=== PATIENT | female | born 2005 | race Caucasian/White ===

== ENCOUNTER 2024-10-08 00:36 | Observation (INO) ==
--- NOTE | 2024-10-08 01:02 | Emergency Department Note ---
Impression & Plan Dizziness, Acute hypokalemia, Sinus tachycardia ED Provider Note HISTORY OF PRESENT ILLNESS: Patient is a 18-year-old female presenting with dizziness and tachycardia. Patient reports she was studying for a biochemistry test for tomorrow when she stood up and suddenly felt very dizzy and lightheaded like she was going to pass out and felt like her heart rate was very high. She states that she tested positive for mono 3 weeks ago. She has not had a fever for the last week. She states that she has had dysuria. Denies any vaginal bleeding or discharge. Denies any lower abdominal pain. Denies any chest pain or significant shortness of breath. She denies any DVT or PE history. She is not on any OCPs. ROS: as above PHYSICAL EXAM: Constitutional: Patient appears in no acute distress. HENT: Head: Normocephalic and atraumatic. Eyes: EOMI, PERRL Mouth/Throat: Mucous membranes moist. Neck: Trachea midline. Neck supple. Cardiovascular: Tachycardic with regular rhythm. No murmurs, rubs or gallops. Intact distal pulses. Pulmonary/Chest: No respiratory distress. Breath sounds clear and equal bilaterally. No wheezes or rales. Abdominal: Abdomen soft, no tenderness, rebound or guarding. Musculoskeletal: No edema, tenderness or deformity noted. Skin: Warm and dry. No rash, erythema, pallor or cyanosis Psychiatric: Appropriate mood and affect for situation. Neurological: Alert and keenly responsive. CN II-XII grossly intact, moving all extremities equally and fully. MDM: - Vitals signs showed hypertension and tachycardia - History obtained via patient. History as above. - Chronic conditions affecting care: None - Differential diagnoses include, but are not limited to: PE; dysrhythmia; electrolyte abnormality; UTI; pneumonia; ACS - Order placed for continuous cardiac monitoring. At this time, monitor showed rate of 108 bpm with normal sinus rhythm, per my interpretation. - External medical records reviewed. - EKG image interpreted by myself showed normal sinus rhythm. Rate tachycardic 112 bpm. QT 304. No acute ischemic changes. - Laboratory workup interpreted by myself showed normal WBC; normal PT/INR; normal D-dimer; slight hypokalemia (K 3.4); elevated glucose (135) with normal anion gap; normal troponin; normal lipase; negative hCG - UA negative for infection - Viral respiratory panel negative - CXR image reviewed by myself is negative for pneumonia, per my interpretation. - Patient given 1L NS in ER. - CT PE negative for PE - CT abdomen with IV contrast negative for acute abnormality. Spleen appeared unremarkable. - Patient remained persistently tachycardic in the emergency department. Unclear etiology for her tachycardia. - Patient had orthostatic vital signs performed and with standing she became tachycardic up to the 140s. Patient became very lightheaded and dizzy with this. She was sat back and laid back in bed and on my assessment she reports she feels worse than when she came in. Unclear etiology for her profound tachycardia. TSH added to workup. However, given patient's persistent tachycardia and persistent symptoms, will admit to hospitalist service. - Discussion was had with case assembler about patient's case and need for admission - Hospitalist, Dr. Colbert, consulted for admission - Patient admitted to [facility] hospitalist service for further evaluation and management. ASSESSMENT AND PLAN: Diagnosis: dizziness; acute hypokalemia; sinus tachycardia Plan: admit Past Med/Surg History Problem List (Updated 10/08/24 @ 04:36 by Ramona Escalante MD) Sinus tachycardia (Acute) Acute hypokalemia (Acute) Dizziness (Acute) Social History Smoking Status: Never smoker Preferred Language: Serbian Feels Safe at Home: Yes Results & Data (ED) Vital Signs Vital Signs - 24 hr 10/08/24 00:39 10/08/24 00:47 10/08/24 02:31 Temperature 36.8 C Temperature Source Temporal Artery Scan Pulse Rate - Lying Pulse Rate - Sitting Pulse Rate - Standing Pulse Rate 110 H 112 H 117 H Pulse Rate [Apical] Pulse Rate [Exercises] Pulse Rhythm Regular Pulse Rhythm [Apical] Pulse Strength [Apical] Respiratory Rate 20 17 Respiratory Rate [Exercises] Respiratory Effort / Characteristics Non-Labored Spontaneous Respiratory Depth Normal Respiratory Pattern Blood Pressure - Lying Blood Pressure - Sitting Blood Pressure- Standing Blood Pressure 153/95 H Blood Pressure [Left Arm] Blood Pressure Mean 114 Blood Pressure Mean [Left Arm] Blood Pressure Position [Left Arm] Pulse Oximetry 97 97 Pulse Oximetry [Exercises] Oxygen Delivery Method Room Air Room Air Sepsis Recent Fever Within 48 Hours No Sepsis New/Unexplained Change in Mental Status No Sepsis Action Taken by Nursing No Action Required 10/08/24 02:37 10/08/24 03:27 10/08/24 04:00 Temperature Temperature Source Pulse Rate - Lying Pulse Rate - Sitting Pulse Rate - Standing Pulse Rate Pulse Rate [Apical] 87 112 H Pulse Rate [Exercises] Pulse Rhythm Pulse Rhythm [Apical] Regular Regular Pulse Strength [Apical] Normal Normal Respiratory Rate 17 17 Respiratory Rate [Exercises] Respiratory Effort / Characteristics Non-Labored Non-Labored Respiratory Depth Normal Normal Respiratory Pattern Regular Regular Blood Pressure - Lying Blood Pressure - Sitting Blood Pressure- Standing Blood Pressure Blood Pressure [Left Arm] 135/78 109/76 Blood Pressure Mean Blood Pressure Mean [Left Arm] 97 87 Blood Pressure Position [Left Arm] Sitting Lying Pulse Oximetry 98 98 98 Pulse Oximetry [Exercises] Oxygen Delivery Method Room Air Room Air Room Air Sepsis Recent Fever Within 48 Hours Sepsis New/Unexplained Change in Mental Status Sepsis Action Taken by Nursing 10/08/24 04:45 10/08/24 04:47 Temperature Temperature Source Pulse Rate - Lying 98 H Pulse Rate - Sitting 115 H Pulse Rate - Standing 138 H Pulse Rate Pulse Rate [Apical] Pulse Rate [Exercises] 120 H Pulse Rhythm Pulse Rhythm [Apical] Pulse Strength [Apical] Respiratory Rate Respiratory Rate [Exercises] 18 Respiratory Effort / Characteristics Respiratory Depth Respiratory Pattern Blood Pressure - Lying 124/85 Blood Pressure - Sitting 130/78 Blood Pressure- Standing 112/86 Blood Pressure Blood Pressure [Left Arm] Blood Pressure Mean Blood Pressure Mean [Left Arm] Blood Pressure Position [Left Arm] Pulse Oximetry Pulse Oximetry [Exercises] 99 Oxygen Delivery Method Room Air Sepsis Recent Fever Within 48 Hours Sepsis New/Unexplained Change in Mental Status Sepsis Action Taken by Nursing Laboratory Data 10/08/24 00:47 10/08/24 00:47 Lab Results 10/08/24 10/08/24 10/08/24 Range/Units 00:47 01:12 01:43 WBC 6.93 (4.8-10.8) K/ul RBC 4.53 (4.20-5.40) M/uL Hgb 13.9 (12.0-16.0) g/dl Hct 39.3 (37.0-47.0) % MCV 86.8 (80.0-100.0) fL MCH 30.7 (25.0-34.0) pg MCHC 35.4 (32.0-36.0) g/dL RDW Std Deviation 38.2 (36.4-46.3) fL RDW Coeff of Juan 12.1 (11.5-14.5) % Plt Count 174 (130-400) K/uL MPV 9.8 (9.4-12.4) fL Immature Gran % (Auto) 0.1 % Neut % (Auto) 58.4 % Lymph % (Auto) 32.5 % Orange % (Auto) 7.5 % Eos % (Auto) 1.2 % Baso % (Auto) 0.3 % Neut # (Auto) 4.05 (1.40-6.50) K/uL Lymph # (Auto) 2.25 (1.20-3.40) K/uL Orange # (Auto) 0.52 (0.11-0.59) K/uL Eos # (Auto) 0.08 (0.00-0.50) K/uL Baso # (Auto) 0.02 (0.00-0.20) K/uL Immature Gran # (Auto) 0.01 (0.01-0.20) K/uL PT Cancelled 10.8 INR Cancelled 1.0 D-Dimer Cancelled 460 Sodium 140 (136-145) mmol/L Potassium 3.4 L (3.5-5.1) mmol/L Chloride 108 H (98-107) mmol/L Carbon Dioxide 26 (21-32) mmol/L Anion Gap 6 (3-11) BUN 23 (6-23) mg/dl Creatinine 0.89 (0.6-1.2) mg/dl Est Cr Clr Drug Dosing 94.4 ml/min eGFR 95.13 BUN/Creatinine Ratio 25.8 H (10-20) Glucose 135 H (70-99(Fasting)) mg/dl Calcium 9.5 (8.6-10.3) mg/dl Magnesium 1.7 (1.7-2.4) mg/dl Total Bilirubin 0.4 (0.2-1.0) mg/dl AST 18 (13-39) U/L ALT 14 (7-52) U/L Alkaline Phosphatase 81 (34-104) U/L Troponin I High Sens < 2.3 (0-14) pg/ml Total Protein 7.6 (6.0-8.3) gm/dl Albumin 4.6 (3.4-5.0) gm/dl Globulin 3.0 (2.5-4.0) gm/dl Albumin/Globulin Ratio 1.5 (0.9-2) Lipase 22 (11-82) U/L HCG, Qual Negative (Negative) Urine Color Yellow Urine Appearance Cloudy A (Clear) Urine pH 6.5 (4.5-7.5) Ur Specific [place] 1.004 (1.000-1.030) Urine Protein Negative (Negative) Urine Glucose (UA) Negative (Negative) Urine Ketones Negative (Negative) Urine Blood Negative (Negative) Urine Nitrite Negative (Negative) Urine Bilirubin Negative (Negative) Urine Urobilinogen Negative (Negative) Ur Leukocyte Esterase Negative (Negative) Urine WBC (Auto) 0-5 (0-5) /hpf Urine RBC (Auto) 0-2 (0-2) /hpf U Hyaline Cast (Auto) 0-2 (0-2) /lpf U Epithel Cells (Auto) 0-2 (0-2) /hpf Urine Bacteria (Auto) None Seen (None Seen) Adenovirus (PCR) Not Detected (NotDetected) B. pertussis DNA (PCR) Not Detected (NotDetected) B.parapertussis DNA PCR Not Detected (NotDetected) C. pneumoniae DNA (PCR) Not Detected (NotDetected) Coronavirus OC43 (PCR) Not Detected (NotDetected) Coronavirus HKU1 (PCR) Not Detected (NotDetected) Coronavirus 229E (PCR) Not Detected (NotDetected) SARS-CoV-2 (PCR) Not Detected (NotDetected) Coronavirus NL63 (PCR) Not Detected (NotDetected) Human Metapneumovir PCR Not Detected (NotDetected) Influenza Type A (PCR) Not Detected (NotDetected) Influenza Type B (PCR) Not Detected (NotDetected) M. pneumoniae (PCR) Not Detected (NotDetected) Parainfluenza 1 (PCR) Not Detected (NotDetected) Parainfluenza 2 (PCR) Not Detected (NotDetected) Parainfluenza 3 (PCR) Not Detected (NotDetected) Parainfluenza 4 (PCR) Not Detected (NotDetected) RSV (PCR) Not Detected (NotDetected) Entero/Rhino (PCR) Not Detected (NotDetected) Administered Medications Discontinued Medications Sodium Chloride (Nss) 1,000 mls @ 999 mls/hr IV .[id number] ONE Stop: 10/08/24 03:38 Last Infusion: 10/08/24 04:28 Dose: Infused Documented By: Admin: 10/08/24 03:07 Dose: 999 mls/hr Documented By: DUGLAS Ioversol (Optiray 320 125ml) 125 ml IV ONCE ONE Stop: 10/08/24 03:04 Last Admin: 10/08/24 03:03 Dose: 118 ml Documented By: MELISA Imaging Data Radiologist's Impression: Chest X-Ray 10/08/24 00:47 EXAM: XR chest 1V portable CLINICAL HISTORY: Chest pain, nonspecific TECHNIQUE: An X-ray image of the chest is obtained in AP projection. COMPARISON: No prior studies are available for comparison. FINDINGS: Pulmonary Parenchyma: Lungs are clear bilaterally. No evidence of consolidation, collapse, or focal opacities. No pulmonary nodules are identified. No evidence of pleural effusion or pleural thickening. Heart and Mediastinum: Heart size and shape are normal. No mediastinal widening or masses. No hilar or mediastinal lymphadenopathy. Bony Thorax: Bony thorax appears intact without fractures or deformities. Soft Tissues: Soft tissues overlying the chest wall are unremarkable. IMPRESSION: No acute cardiopulmonary abnormalities are identified. Electronically signed by Deepak Hardy 10-08-2024 02:54 AM Chest CTA 10/08/24 02:38 EXAM: CT angio chest PE protocol CLINICAL HISTORY: PE TECHNIQUE: Contiguous axial images were obtained from the neck base through the upper abdomen following intravenous administration of iodinated contrast material. Angiographic images were processed, 3D MIP images were acquired for interpretation. If IV contrast material had not been administered, the likelihood of detecting abnormalities relevant to the patient's condition would have been substantially decreased. Coronal and sagittal 3-D MIPs were likewise performed and indicated to increase the sensitivity of detectin diffuse clinically relevant pathology. CT scan was performed according to ALARA (as low as reasonable achievable). COMPARISON: None. FINDINGS: Adequate contrast bolus without evidence of pulmonary embolism. The central airways are patent. The lungs are clear. No pleural effusion. The heart, aorta, and pulmonary arteries are of normal size and configuration. There are no appreciable coronary artery and aortic atherosclerotic calcifications. No pericardial effusion is identified. The thyroid is unremarkable. No mediastinal, hilar, or axillary lymphadenopathy is noted. No suspicious lytic or sclerotic osseous lesions are identified. IMPRESSION: 1. No evidence of pulmonary embolism or pulmonary disease. Electronically signed by Eugene Pringle 10-08-2024 04:[address] 10/08/24 02:55 EXAM: CT abdomen w IV con CLINICAL HISTORY: recent mono; assess spleen TECHNIQUE: Contiguous axial images were of upper abdomen with intravenous contrast. Coronal and sagittal reconstructions were likewise performed and indicated to increase the sensitivity for detecting clinically relevant pathology. If IV contrast material had not been administered, the likelihood of detecting abnormalities relevant to the patient's condition would have been substantially decreased. CT scan was performed according to ALARA (as low as reasonable achievable). COMPARISON: None. FINDINGS: The visualized lung bases are clear. The liver is normal in size and attenuation. No focal liver lesions are seen. There is no intra or extrahepatic biliary ductal dilatation. Hepatic vasculature is patent. The gallbladder is present. The spleen, pancreas, and adrenal glands are unremarkable. The kidneys are normal in size and attenuation. There is no hydronephrosis or perinephric fat stranding. No renal calculi or renal masses are identified. The ureters are normal in caliber and no ureteral calculi are seen. The bladder is normal in contour. Pelvic viscera are unremarkable. Visualized bowel loops appears unremarkable. No adenopathy or fluid collections are seen. No aggressive appearing osseous lesions are identified. IMPRESSION: 1. No significant abnormality detected 2. Spleen appears unremarkable. Electronically signed by Eugene Pringle 10-08-2024 04:25 AM Discharge Plan Visit Data Chief Complaint: Cardiac Assessment Stated Complaint: DIZZINESS, CHEST PAIN, HIGH HEART RATE ED Provider: Ramona Escalante Discharge Problem: Dizziness, Acute hypokalemia, Sinus tachycardia Discharge Instructions Krames/Other Patient Handouts: ED Dizziness, Uncertain Cause Activity Restrictions/Additional Instructions: Your laboratory workup in the emergency department showed that your potassium level was slightly low. Your viral respiratory panel was negative. Your urinalysis did not show any evidence of infection. Your chest x-ray did not show any evidence of pneumonia. You also had a CT scan of your chest and abdomen which was negative for any blood clot to your lung, pneumonia or any abnormality to your spleen. Your heart rate is noted to be slightly elevated, but it is recommended that you stay well-hydrated the next few days. Please follow-up closely with [facility] and with your primary care provider. He should return to the emergency department if you develop any further episodes of chest pain or shortness of breath, lightheadedness or dizziness, or any new or worsening symptoms. Forms Stand Alone Forms: Work/School Release (ED), [facility] Referrals Referrals: PCP,NO [Physician] -
[2024-10-08 01:25] LABS: Appearance Urine Cloudy (Clear); Bacteria Urine Automated None Seen (None Seen); Bilirubin Urine Negative (Negative); Blood Urine Negative (Negative); Cast Urine Automated 0-2 /lpf (0-2); Color Urine Yellow; Epithelial Cell Urine Auto 0-2 /hpf (0-2); Glucose Urine UA Negative (Negative); Ketones Urine Negative (Negative); Leukocyte Esterase Urine Negative (Negative); Nitrite Urine Negative (Negative); Protein Urine Negative (Negative); RBC Urine Automated 0-2 /hpf (0-2); Specific Gravity Urine 1.004 (1.000-1.030); Urobilinogen Urine Negative (Negative); WBC Urine Automated 0-5 /hpf (0-5); pH Urine 6.5 (4.5-7.5)
[2024-10-08 01:26] LABS: Basophils # (auto) 0.02 K/uL (0.00-0.20); Basophils % (auto) 0.3 %; Eosinophils # (auto) 0.08 K/uL (0.00-0.50); Eosinophils % (auto) 1.2 %; Hematocrit (blood only) 39.3 % (37.0-47.0); Hemoglobin 13.9 g/dl (12.0-16.0); Immature Granulocytes # (auto) 0.01 K/uL (0.01-0.20); Immature Granulocytes % (auto) 0.1 %; Lymphocytes # (auto) 2.25 K/uL (1.20-3.40); Lymphocytes % (auto) 32.5 %; Mean Corpuscular Hemoglobin 30.7 pg (25.0-34.0); Mean Corpuscular Hgb Conc 35.4 g/dL (32.0-36.0); Mean Corpuscular Volume 86.8 fL (80.0-100.0); Mean Platelet Volume 9.8 fL (9.4-12.4); Monocytes # (auto) 0.52 K/uL (0.11-0.59); Monocytes % (auto) 7.5 %; Neutrophils # (auto) 4.05 K/uL (1.40-6.50); Neutrophils % (auto) 58.4 %; Platelet Count 174 K/uL (130-400); RDW Coefficient of Variation 12.1 % (11.5-14.5); RDW Standard Deviation 38.2 fL (36.4-46.3); Red Blood Count 4.53 M/uL (4.20-5.40); White Blood Count 6.93 K/ul (4.8-10.8)
[2024-10-08 01:38] LABS: Pregnancy Test, Serum Negative (Negative)
[2024-10-08 01:42] LABS: Alanine Aminotransferase 14 U/L (7-52); Albumin Globulin Ratio 1.5 (0.9-2); Albumin Level 4.6 gm/dl (3.4-5.0); Alkaline Phosphatase 81 U/L (34-104); Anion Gap 6 (3-11); Aspartate Aminotransferase 18 U/L (13-39); BUN Creatinine Ratio 25.8 (10-20); Bilirubin,Total 0.4 mg/dl (0.2-1.0); Blood Urea Nitrogen 23 mg/dl (6-23); Calcium 9.5 mg/dl (8.6-10.3); Carbon Dioxide 26 mmol/L (21-32); Chloride 108 mmol/L (98-107); Creatinine Clr Calc Pharmacy 94.4 ml/min; Glucose 135 mg/dl (70-99(Fasting)); Lipase 22 U/L (11-82); Potassium 3.4 mmol/L (3.5-5.1); Sodium 140 mmol/L (136-145); Total Protein 7.6 gm/dl (6.0-8.3)
[2024-10-08 01:48] LABS: Troponin I High Sensitivity < 2.3 pg/ml (0-14)
[2024-10-08 02:12] LABS: Adenovirus PCR Not Detected (NotDetected); Bordetella parapertussis PCR Not Detected (NotDetected); Bordetella pertussis PCR Not Detected (NotDetected); Chlamydia pneumoniae PCR Not Detected (NotDetected); Coronavirus 229E PCR Not Detected (NotDetected); Coronavirus CoV-2 (COVID19)PCR Not Detected (NotDetected); Coronavirus HKU1 PCR Not Detected (NotDetected); Coronavirus NL63 PCR Not Detected (NotDetected); Coronavirus OC43PCR Not Detected (NotDetected); Human Metapneumovirus PCR Not Detected (NotDetected); Influenza A PCR Not Detected (NotDetected); Influenza B PCR Not Detected (NotDetected); Mycoplasma pneumoniae PCR Not Detected (NotDetected); Parainfluenza Virus 1 PCR Not Detected (NotDetected); Parainfluenza Virus 2 PCR Not Detected (NotDetected); Parainfluenza Virus 3 PCR Not Detected (NotDetected); Parainfluenza Virus 4 PCR Not Detected (NotDetected); Respiratory Syncytial VirusPCR Not Detected (NotDetected); Rhinovirus/Enterovirus PCR Not Detected (NotDetected)
[2024-10-08 02:33] LABS: D Dimer 460 ug/L FEU (0-500); Prothrombin Time 10.8 Seconds (9.0-12.0)
--- NOTE | 2024-10-08 02:57 | XRay Report ---
EXAM: XR chest 1V portable CLINICAL HISTORY: Chest pain, nonspecific TECHNIQUE: An X-ray image of the chest is obtained in AP projection. COMPARISON: No prior studies are available for comparison. FINDINGS: Pulmonary Parenchyma: Lungs are clear bilaterally. No evidence of consolidation, collapse, or focal opacities. No pulmonary nodules are identified. No evidence of pleural effusion or pleural thickening. Heart and Mediastinum: Heart size and shape are normal. No mediastinal widening or masses. No hilar or mediastinal lymphadenopathy. Bony Thorax: Bony thorax appears intact without fractures or deformities. Soft Tissues: Soft tissues overlying the chest wall are unremarkable. IMPRESSION: No acute cardiopulmonary abnormalities are identified. Electronically signed by Deepak Hardy 10-08-2024 02:54 AM
[2024-10-08] MEDS: OPTIRAY 320 125ml IV ONE (03:03)
[2024-10-08] MEDS: SODIUM CHLORIDE 0.9% 1,000 ML IV ONE ×2 (03:07→13:03)
[2024-10-08 03:10] LABS: Magnesium 1.7 mg/dl (1.7-2.4)
--- NOTE | 2024-10-08 04:24 | CT Scan Report ---
EXAM: CT angio chest PE protocol CLINICAL HISTORY: PE TECHNIQUE: Contiguous axial images were obtained from the neck base through the upper abdomen following intravenous administration of iodinated contrast material. Angiographic images were processed, 3D MIP images were acquired for interpretation. If IV contrast material had not been administered, the likelihood of detecting abnormalities relevant to the patient's condition would have been substantially decreased. Coronal and sagittal 3-D MIPs were likewise performed and indicated to increase the sensitivity of detectin diffuse clinically relevant pathology. CT scan was performed according to ALARA (as low as reasonable achievable). COMPARISON: None. FINDINGS: Adequate contrast bolus without evidence of pulmonary embolism. The central airways are patent. The lungs are clear. No pleural effusion. The heart, aorta, and pulmonary arteries are of normal size and configuration. There are no appreciable coronary artery and aortic atherosclerotic calcifications. No pericardial effusion is identified. The thyroid is unremarkable. No mediastinal, hilar, or axillary lymphadenopathy is noted. No suspicious lytic or sclerotic osseous lesions are identified. IMPRESSION: 1. No evidence of pulmonary embolism or pulmonary disease. Electronically signed by Eugene Pringle 10-08-2024 04:23 AM
--- NOTE | 2024-10-08 04:25 | CT Scan Report ---
EXAM: CT abdomen w IV con CLINICAL HISTORY: recent mono; assess spleen TECHNIQUE: Contiguous axial images were of upper abdomen with intravenous contrast. Coronal and sagittal reconstructions were likewise performed and indicated to increase the sensitivity for detecting clinically relevant pathology. If IV contrast material had not been administered, the likelihood of detecting abnormalities relevant to the patient's condition would have been substantially decreased. CT scan was performed according to ALARA (as low as reasonable achievable). COMPARISON: None. FINDINGS: The visualized lung bases are clear. The liver is normal in size and attenuation. No focal liver lesions are seen. There is no intra or extrahepatic biliary ductal dilatation. Hepatic vasculature is patent. The gallbladder is present. The spleen, pancreas, and adrenal glands are unremarkable. The kidneys are normal in size and attenuation. There is no hydronephrosis or perinephric fat stranding. No renal calculi or renal masses are identified. The ureters are normal in caliber and no ureteral calculi are seen. The bladder is normal in contour. Pelvic viscera are unremarkable. Visualized bowel loops appears unremarkable. No adenopathy or fluid collections are seen. No aggressive appearing osseous lesions are identified. IMPRESSION: 1. No significant abnormality detected 2. Spleen appears unremarkable. Electronically signed by Eugene Pringle 10-08-2024 04:25 AM
--- NOTE | 2024-10-08 05:26 | History & Physical Report ---
Date of Service October 08, 2024 Assessment & Plan (1) Sinus tachycardia: (2) Acute hypokalemia: Plan 18yo female with recent diagnosis of Mononucleosis 3 weeks ago presenting with sinus tachycardia, intermittent episodes of rigors/flushing/chest tightness which started this evening. #Sinus tachycardia - patient with no cardiac issues. She is active, baseline resting heart rate reported to be 60. Sinus tachycardia, no ectopy or arrhythmia appreciated on review of telemetry. Troponin is undetectable. Suspect some degree of dehydration given recent illness as well as electrolyte abnormality - K=3.4, Mg is borderline low at 1.7. Cardiac complications can occur with Mononucleosis, although rare. [place] also can be cause of dysautonomia -Observation to medical with telemetry -LR at 125mL/hr x 1L -Check TSH -K repletion - K=3.4, will give 60mEq x 1 -Mg x 1gm IV -Repeat BMP ordered today at 13:00 -Check 2D echo -No obvious evidence of infection at this time - normal WBC count, UA, Respiratory biofire panel, CXR, CTA chest and abdominal CT unremarkable. Continue to monitor #Hypokalemia - repletion with PO potassium 60mEq - repeat BMP at 13:00 today History of Present Illness Chief Complaint: TACHYCARDIA Primary Care Provider: JOSH LEONARD Citlali Norton is a pleasant 18yo female with no significant medical history presenting with tachycardia. Patient was recently diagnosed with [place] three weeks ago. She reports having a fever for 8 days as well as fatigue. She was mostly able to complete her daily activities - eating and drinking fairly well and going to class (pre-med major). This week she returned to some light daily exercise such as walking on the treadmill and was overall feeling well. This evening around 22:30 she stood up from the couch and felt dizzy, lightheaded and flushed. She felt that her heart was racing. Since then she has been experiencing intermittent episodes of shaking chills, flushing and tachycardia with chest tightness, difficulty taking a deep breath. Also complaining of significant weakness. She denies fever, abdominal pain, nausea, vomiting, diarrhea or constipation. She did have some mild dysuria. She reports a decreased appetite and approximately 8# of weight loss over the last three weeks while sick with mono. She is very active - baseline resting heart rate of 60bpm. Exercises frequently and reports active heart rate is in the low 100's. In the ER patient afebrile, tachycardic - sinus on monitor and telemetry review ER Course: NSS x 1L Past Med/Surg History Problem List (Updated 10/08/24 @ 06:00 by Leonora Colbert DO) Factor XI deficiency Sinus tachycardia (Acute) Acute hypokalemia (Acute) Dizziness (Acute) Medical History (Updated 10/08/24 @ 06:00 by Leonora Colbert DO) History of PCOS Surgical History (Updated 10/08/24 @ 05:59 by Leonora Colbert DO) History of foot surgery Social History Smoking Status: Never smoker Preferred Language: Latvian Feels Safe at Home: Yes Review of Systems Review of Systems: All systems reviewed & are unremarkable except as noted in HPI & below Physical Exam Physical Exam: General: patient resting comfortably, NAD, non-toxic in appearance, AA&O x 4 Skin: warm, dry, intact, no rashes or lesions HEENT: NC/AT, PERRL, EOMI, anicteric sclera, conjunctiva without injection, external ear normal to inspection and nontender, nares patent, moist mucus membranes, dentition intact, no oropharyngeal lesions, neck supple, trachea midline, no LAD, no thyromegaly, no JVD Heart: +S1/S2, regular, tachycardic, no m/r/g, normal PMI, no JVD Lungs: equal air entry bilaterally, no rales/rhonchi/wheezes Abd: +BS, soft, NT/ND, no masses/organomegaly/ascites Ext: warm, 2+ pulses in UE/LE bilaterally, no clubbing/cyanosis or edema Neuro: nonfocal, patient AA&O x 4, speech intact, no facial droop, moving all extremities on command with equal strength 5/5 Results & Data Results & Data Vital Signs (Past 12 Hours) Vital Signs Temp Pulse Pulse Pulse Resp Resp BP 10/08/24 04:45 120 H 18 10/08/24 04:00 112 H 17 10/08/24 03:27 10/08/24 02:37 87 17 10/08/24 02:31 117 H 10/08/24 00:47 112 H 17 10/08/24 00:39 36.8 C 110 H 20 153/95 H BP Pulse Ox Pulse Ox O2 Del Method 10/08/24 04:45 99 Room Air 10/08/24 04:00 109/76 98 Room Air 10/08/24 03:27 98 Room Air 10/08/24 02:37 135/78 98 Room Air 10/08/24 02:31 10/08/24 00:47 97 Room Air 10/08/24 00:39 97 Room Air Laboratory Results Laboratory Results WBC 6.93 K/ul (4.8-10.8) 10/08/24 00:47 RBC 4.53 M/uL (4.20-5.40) 10/08/24 00:47 Hgb 13.9 g/dl (12.0-16.0) 10/08/24 00:47 Hct 39.3 % (37.0-47.0) 10/08/24 00:47 MCV 86.8 fL (80.0-100.0) 10/08/24 00:47 MCH 30.7 pg (25.0-34.0) 10/08/24 00:47 MCHC 35.4 g/dL (32.0-36.0) 10/08/24 00:47 RDW Std Deviation 38.2 fL (36.4-46.3) 10/08/24 00:47 RDW Coeff of Juan 12.1 % (11.5-14.5) 10/08/24 00:47 Plt Count 174 K/uL (130-400) 10/08/24 00:47 MPV 9.8 fL (9.4-12.4) 10/08/24 00:47 Immature Gran % (Auto) 0.1 % 10/08/24 00:47 Neut % (Auto) 58.4 % 10/08/24 00:47 Lymph % (Auto) 32.5 % 10/08/24 00:47 [place] % (Auto) 7.5 % 10/08/24 00:47 Eos % (Auto) 1.2 % 10/08/24 00:47 Baso % (Auto) 0.3 % 10/08/24 00:47 Neut # (Auto) 4.05 K/uL (1.40-6.50) 10/08/24 00:47 Lymph # (Auto) 2.25 K/uL (1.20-3.40) 10/08/24 00:47 [place] # (Auto) 0.52 K/uL (0.11-0.59) 10/08/24 00:47 Eos # (Auto) 0.08 K/uL (0.00-0.50) 10/08/24 00:47 Baso # (Auto) 0.02 K/uL (0.00-0.20) 10/08/24 00:47 Immature Gran # (Auto) 0.01 K/uL (0.01-0.20) 10/08/24 00:47 PT 10.8 Seconds (9.0-12.0) 10/08/24 01:43 INR 1.0 (0.9-1.1) 10/08/24 01:43 D-Dimer 460 ug/L FEU (0-500) 10/08/24 01:43 Sodium 140 mmol/L (136-145) 10/08/24 00:47 Potassium 3.4 mmol/L (3.5-5.1) L 10/08/24 00:47 Chloride 108 mmol/L (98-107) H 10/08/24 00:47 Carbon Dioxide 26 mmol/L (21-32) 10/08/24 00:47 Anion Gap 6 (3-11) 10/08/24 00:47 BUN 23 mg/dl (6-23) 10/08/24 00:47 Creatinine 0.89 mg/dl (0.6-1.2) 10/08/24 00:47 Est Cr Clr Drug Dosing 94.4 ml/min 10/08/24 00:47 eGFR 95.13 10/08/24 00:47 BUN/Creatinine Ratio 25.8 (10-20) H 10/08/24 00:47 Glucose 135 mg/dl (70-99(Fasting)) H 10/08/24 00:47 Calcium 9.5 mg/dl (8.6-10.3) 10/08/24 00:47 Magnesium 1.7 mg/dl (1.7-2.4) 10/08/24 00:47 Total Bilirubin 0.4 mg/dl (0.2-1.0) 10/08/24 00:47 AST 18 U/L (13-39) 10/08/24 00:47 ALT 14 U/L (7-52) 10/08/24 00:47 Alkaline Phosphatase 81 U/L (34-104) 10/08/24 00:47 Troponin I High Sens < 2.3 pg/ml (0-14) 10/08/24 00:47 Total Protein 7.6 gm/dl (6.0-8.3) 10/08/24 00:47 Albumin 4.6 gm/dl (3.4-5.0) 10/08/24 00:47 Globulin 3.0 gm/dl (2.5-4.0) 10/08/24 00:47 Albumin/Globulin Ratio 1.5 (0.9-2) 10/08/24 00:47 Lipase 22 U/L (11-82) 10/08/24 00:47 HCG, Qual Negative (Negative) 10/08/24 00:47 Urine Color Yellow 10/08/24 01:12 Urine Appearance Cloudy (Clear) A 10/08/24 01:12 Urine pH 6.5 (4.5-7.5) 10/08/24 01:12 Ur Specific [place] 1.004 (1.000-1.030) 10/08/24 01:12 Urine Protein Negative (Negative) 10/08/24 01:12 Urine Glucose (UA) Negative (Negative) 10/08/24 01:12 Urine Ketones Negative (Negative) 10/08/24 01:12 Urine Blood Negative (Negative) 10/08/24 01:12 Urine Nitrite Negative (Negative) 10/08/24 01:12 Urine Bilirubin Negative (Negative) 10/08/24 01:12 Urine Urobilinogen Negative (Negative) 10/08/24 01:12 Ur Leukocyte Esterase Negative (Negative) 10/08/24 01:12 Urine WBC (Auto) 0-5 /hpf (0-5) 10/08/24 01:12 Urine RBC (Auto) 0-2 /hpf (0-2) 10/08/24 01:12 U Hyaline Cast (Auto) 0-2 /lpf (0-2) 10/08/24 01:12 U Epithel Cells (Auto) 0-2 /hpf (0-2) 10/08/24 01:12 Urine Bacteria (Auto) None Seen (None Seen) 10/08/24 01:12 Adenovirus (PCR) Not Detected (NotDetected) 10/08/24 01:12 B. pertussis DNA (PCR) Not Detected (NotDetected) 10/08/24 01:12 B.parapertussis DNA PCR Not Detected (NotDetected) 10/08/24 01:12 C. pneumoniae DNA (PCR) Not Detected (NotDetected) 10/08/24 01:12 Coronavirus OC43 (PCR) Not Detected (NotDetected) 10/08/24 01:12 Coronavirus HKU1 (PCR) Not Detected (NotDetected) 10/08/24 01:12 Coronavirus 229E (PCR) Not Detected (NotDetected) 10/08/24 01:12 SARS-CoV-2 (PCR) Not Detected (NotDetected) 10/08/24 01:12 Coronavirus NL63 (PCR) Not Detected (NotDetected) 10/08/24 01:12 Human Metapneumovir PCR Not Detected (NotDetected) 10/08/24 01:12 Influenza Type A (PCR) Not Detected (NotDetected) 10/08/24 01:12 Influenza Type B (PCR) Not Detected (NotDetected) 10/08/24 01:12 M. pneumoniae (PCR) Not Detected (NotDetected) 10/08/24 01:12 Parainfluenza 1 (PCR) Not Detected (NotDetected) 10/08/24 01:12 Parainfluenza 2 (PCR) Not Detected (NotDetected) 10/08/24 01:12 Parainfluenza 3 (PCR) Not Detected (NotDetected) 10/08/24 01:12 Parainfluenza 4 (PCR) Not Detected (NotDetected) 10/08/24 01:12 RSV (PCR) Not Detected (NotDetected) 10/08/24 01:12 Entero/Rhino (PCR) Not Detected (NotDetected) 10/08/24 01:12 Impressions Chest X-Ray 10/08/24 00:47 EXAM: XR chest 1V portable CLINICAL HISTORY: Chest pain, nonspecific TECHNIQUE: An X-ray image of the chest is obtained in AP projection. COMPARISON: No prior studies are available for comparison. FINDINGS: Pulmonary Parenchyma: Lungs are clear bilaterally. No evidence of consolidation, collapse, or focal opacities. No pulmonary nodules are identified. No evidence of pleural effusion or pleural thickening. Heart and Mediastinum: Heart size and shape are normal. No mediastinal widening or masses. No hilar or mediastinal lymphadenopathy. Bony Thorax: Bony thorax appears intact without fractures or deformities. Soft Tissues: Soft tissues overlying the chest wall are unremarkable. IMPRESSION: No acute cardiopulmonary abnormalities are identified. Electronically signed by Deepak Hardy 10-08-2024 02:54 AM Chest CTA 10/08/24 02:38 EXAM: CT angio chest PE protocol CLINICAL HISTORY: PE TECHNIQUE: Contiguous axial images were obtained from the neck base through the upper abdomen following intravenous administration of iodinated contrast material. Angiographic images were processed, 3D MIP images were acquired for interpretation. If IV contrast material had not been administered, the likelihood of detecting abnormalities relevant to the patient's condition would have been substantially decreased. Coronal and sagittal 3-D MIPs were likewise performed and indicated to increase the sensitivity of detectin diffuse clinically relevant pathology. CT scan was performed according to ALARA (as low as reasonable achievable). COMPARISON: None. FINDINGS: Adequate contrast bolus without evidence of pulmonary embolism. The central airways are patent. The lungs are clear. No pleural effusion. The heart, aorta, and pulmonary arteries are of normal size and configuration. There are no appreciable coronary artery and aortic atherosclerotic calcifications. No pericardial effusion is identified. The thyroid is unremarkable. No mediastinal, hilar, or axillary lymphadenopathy is noted. No suspicious lytic or sclerotic osseous lesions are identified. IMPRESSION: 1. No evidence of pulmonary embolism or pulmonary disease. Electronically signed by Eugene Pringle 10-08-2024 04:[address] 10/08/24 02:55 EXAM: CT abdomen w IV con CLINICAL HISTORY: recent mono; assess spleen TECHNIQUE: Contiguous axial images were of upper abdomen with intravenous contrast. Coronal and sagittal reconstructions were likewise performed and indicated to increase the sensitivity for detecting clinically relevant pathology. If IV contrast material had not been administered, the likelihood of detecting abnormalities relevant to the patient's condition would have been substantially decreased. CT scan was performed according to ALARA (as low as reasonable achievable). COMPARISON: None. FINDINGS: The visualized lung bases are clear. The liver is normal in size and attenuation. No focal liver lesions are seen. There is no intra or extrahepatic biliary ductal dilatation. Hepatic vasculature is patent. The gallbladder is present. The spleen, pancreas, and adrenal glands are unremarkable. The kidneys are normal in size and attenuation. There is no hydronephrosis or perinephric fat stranding. No renal calculi or renal masses are identified. The ureters are normal in caliber and no ureteral calculi are seen. The bladder is normal in contour. Pelvic viscera are unremarkable. Visualized bowel loops appears unremarkable. No adenopathy or fluid collections are seen. No aggressive appearing osseous lesions are identified. IMPRESSION: 1. No significant abnormality detected 2. Spleen appears unremarkable. Electronically signed by Eugene Pringle 10-08-2024 04:25 AM ECG Additional Comments: EKG with sinus tachycardia, XX=546, QRS=76, XTo=640, no acute ischemic changes PG Care Time/CCT Total # of Minutes Spent Total Time Spent with Patient: Total time spent is greater than 50% in coordination of care (as documented) at patient's floor/unit and/or counseling patient: Coding Level of Care Code 83340 INT INP/OBS CARE 3/75MIN Diagnoses Sinus tachycardia R00.0 Acute hypokalemia E87.6
[2024-10-08] MEDS: MAGNESIUM SULFATE / D5W 1 GM/100 ML BAG IV STA (06:08)
[2024-10-08] MEDS: Patient's ALLERGY Info needs ENTERED ONE (06:08)
[2024-10-08] MEDS: POTASSIUM CHLORIDE CRTAB 20 MEQ TABCR PO STA ×2 (06:08→08:43)
[2024-10-08 06:16] LABS: Thyroid Stimulating Hormone 2.254 uIu/ml (0.300-4.500)
--- NOTE | 2024-10-08 07:35 | Electrocardiogram Report ---
Test Reason : Blood Pressure : */* mmHG Vent. Rate : 112 BPM Atrial Rate : 112 BPM P-R Int : 128 ms QRS Dur : 76 ms QT Int : 304 ms P-R-T Axes : 65 58 41 degrees QTcB Int : 414 ms Sinus tachycardia Otherwise normal ECG No previous ECGs available Confirmed by Earl Cummings ([id number]) on 10/08/2024 7:35:34 AM Referred By: REFERRED SELF Confirmed By: Earl Cummings
[2024-10-08] MEDS ORDERED: ONDANSETRON INJ 2 MG/ML 2 ML VIAL IV PRN (08:41)
[2024-10-08] MEDS: LACTATED RINGER'S 1,000 ML IV SCH (09:13)
--- NOTE | 2024-10-08 13:08 | XCELERA ---
[id number] \\[email or web address]-[email or web address]_[email or web address]\[id number]
[2024-10-08 13:27] LABS: BUN Creatinine Ratio 14.1 (10-20); Calcium 9.4 mg/dl (8.6-10.3); Creatinine Clr Calc Pharmacy 118.3 ml/min
--- OUTSIDE RECORDS SUMMARY | 2024-10-08 13:37 | External Medical Summary ---
Author Name Unknown Address Unknown Organization [id number]:[facility] [place] [facility] [address] [facility] [place] [address] [facility] Report Ordering Provider Test Date Status LINDA BLACKMON 07/28/2024 08:20:27 Final Observation Date Value Abnormality Reference (Units ) Status Follitropin [Units/volume] in Serum or Plasma by 2nd IRP 07/28/2024 08:20:27 4.9 (mIU/mL) Final Follicular Phase: 3.5- 12.5 mIU/mL
Ovulation Phase: 4.7- 21.5 mIU/mL
Luteal Phase: 1.7- 7.7 mIU/mL
Postmenopausal: 25.8-134.8 mIU/mL Performing Location [facility] [place] - [address] [place] [address]
--- OUTSIDE RECORDS SUMMARY | 2024-10-08 13:37 | External Medical Summary | Summary of Care ---
Author Name Unknown Organization [facility] Address [address] [place] [address] Phone [phone] Care Team Providers Care Forming Department Supervisor Name Role Phone Darlene Grover MD Primary Care Provider [phone] Reason for Visit * Reason Comments Follow Up Urgent care Encounter Details Date Type Department Care Team (Latest Contact Info) Description 09/17/2024 3:20 PM EST Office Visit General Internal Medicine [facility] [address] [address] Naomi Sheth PA-C [address] [place] [address] Infectious mononucleosis without complication, infectious mononucleosis due to unspecified organism*; Burning in the chest Allergies Active Allergy Reactions Criticality Noted Date Comments Gluten Meal 01/16/2023 Vomiting, itchy throat documented as of this encounter (statuses as of 09/17/2024) Medications Tretinoin 0.05 % External Cream (Retin-A)Indica tions:Encounter for medication refill APPLY TOPICALLY TO AFFECTED AREA AT BEDTIME 45 g 1 4 Active methylPREDNISol one 4 MG Oral Tablet Therapy Pack (Medrol Dosepack) 5 Active Norethin Shadi-Eth Estrad-FE 1-20 MG-MCG Oral Tablet (Loestrin Fe 08/24) Take 1 Tab by mouth daily. 90 Tab 3 1 09/17/19 25 Discontinu ed(Medicat ion List Clean Up) FLUoxetine HCl 10 MG Oral Capsule (PROzac)Indicat ions:Anxiety Take 1 Capsule by mouth in the morning. 30 Capsule 11 4 09/17/19 25 Discontinu ed(Medicat ion List Clean Up) documented as of this encounter (statuses as of 09/17/2024) Active Problems Problem Noted Date Diagnosed Date Sprain and strain of other specified sites of hi p and thigh 12/17/2012 documented as of this encounter (statuses as of 09/17/2024) Resolved Problems Problem Noted Date Diagnosed Date Resolved Date Acute pain of right knee 04/16/2016 Knee pain 12/17/2012 04/16/2016 documented as of this encounter (statuses as of 09/17/2024) Immunizations Name Administration Dates Next Due DTaP HIB - Dipth/Tet/Acell Pert/HIB 02/26/2005 DTaP Dipth/Tet/Acell Pertussis (Infanrix), Peds 05/23/2004,03/22/2004,01/20/2004 DTaP-IPV (Kinrix), 4 to 6 yrs 01/11/2009 HPV Vaccine, 9-Valent 07/27/2024,09/13/2023,07/05 Haemophilius B (HIB), unspecified 05/23/2004,,01/20/2004 Hepatitis A Vaccine 01/11/2009,11/25/2007 Hepatitis A, Ped/Adol., 18 y ear and below, 2-Dose 01/11/2009,11/25/2007 Hepatitis B, 0-19 yrs 08/24/2004,01/05/2004,10/2003 IPV - Polio Virus Vaccine (Inact) 08/24/2004,,01/20/2004 MMR - Measles/Mumps/Rubella Vaccine 11/25/2007,0 02/26/2005 Meningococcal Conjugate Vacc ine (Menactra/Menveo) 12/30/2014 Meningococcal MCV4O Conjugat e Vaccine (Menveo) 04/20/2020 Meningococcal MCV4P Conjugat e Vaccine (Menactra) 04/20/2020,12/30/2014 Pneumococcal Conjugate Vacci ne, 7 Valent 11/22/2004,05/23/2004,03/22/2004,01/04 Seasonal Influenza Vac., MDV , IM, 0.5 mL (Fluzone) 07/24/2007 Seasonal Influenza Virus Vac cine, Unspecified Formulation 07/24/2007,07/02/2006,05/29/2005,05/29 Seasonal Influenza, Trivalen t, (IIV3), PF, (Fluzone) 07/02/2006,05/29/2005,05/29/2004 TDAP, Age 7 and older, IM (Adacel) 12/30/2014 Varicella Vaccine (Chicken Pox) 11/25/2007,11/22 documented as of this encounter Social History Tobacco Use Types Packs/Day Years Used Date Smoking Tobacco: Never Smokeless Tobacco: Never Alcohol Use Standard Drinks/Week Comments Never 0 (1 standard drink = 0.6 oz pur e alcohol) PHQ-2 Answer Date Recorded PHQ-2 Score 1 04/01/2019 Hunger Vital Sign Answer Date Recorded Within the past 12 months, y ou worried that your food would run out before you got the money to buy more. Never true 07/10/20 23 Within the past 12 months, t he food you bought just didn't last and you didn't have money to get more. Never true 07/10/2023 Childcare Answer Date Recorded Do you feel overwhelmed with taking care of a child, family member or friend? No 07/10/2023 Does your family need help f inding childcare? (Household - for ages 0-17 years) Not on file 07/10/2023 Clothing Answer Date Recorded Have you been unable to get clothing when it was really needed? No 07/10/2023 Is your family able to get c lothes or diapers when needed? (Household - for ages 0-17 years) Not on file 07/10/2023 Personal Safety Answer Date Recorded Do you feel unsafe or have concerns for your saf ety? No 07/10/2023 Do you have concerns for you r family's safety? (Household - for ages 0-17 years) Not on file 07/10/2023 Utilities Answer Date Recorded Do you have trouble paying y our heating, water, or electric bill? No 07/10/2023 Is your family able to pay t he heat, water, or electric bill? (Household - for ages 0-17 years) Not on file 07/10/2023 Does your family have access to good internet? (Household - for ages 0-17 years) Not on file 07/10/2023 Employment Status Answer Date Recorded Are you unemployed or without regular income? No 07/10/2023 Does the household have a re gular source of income? (Household - for ages 0-17 years) Not on file 07/10/2023 Social Connections Answer Date Recorded How often do you feel lonely or isolated from th ose around you? Rarely 07/10/2023 Financial Resource Strain Answer Date R ecorded Do you have any trouble payi ng for your medications, or do you think you might in the future? No 07/10/2023 Does your family have troubl e paying for medicine? (Household - for ages 0-17 years) Not on file 07/10/2023 Transportation Needs Answer Date Record ed READ ONLY Do you have troubl e getting a ride to medical visits or work? Never True 07/10/2023 Does your family have a hard time getting a ride to doctors visits? (Household - for ages 0-17 years) Not on file 07/10/2023 Has lack of transportation k ept you from medical appointments, meetings, work, or from getting things needed for daily living? Check all that apply. (Adult - for ages 18 years and over) Not on file 07/10/2023 Do you (or your family) have trouble finding or paying for a ride (transportation)? (Household - for ages 0-17 years) Not on file 07/10/2023 Housing Stability Answer Date Recorded Do you currently live in a s helter or have no steady place to sleep at night? No 07/10/2023 READ ONLY Do you think you a re at risk of becoming homeless? No 07/10/2023 Does your family worry about paying for your home or becoming homeless? (Household - for ages 0-17 years) Not on file 1 09/10/2022 Are you homeless or worried that you might be in the future? (Adult - for ages 18 years and over) Not on file Are you (or your family) asia eless or worried that you might be in the future? (Household - for ages 0-17 years) Not on file Food Insecurity Answer Date Recorded Do you need food for this week? No 07/10/2023 Are you able to get enough f ood for your family? (Household - for ages 0-17 years) Not on file 07/10/2023 Does your family need food t his week? (Household - for ages 0-17 years) Not on file 07/10/2023 Do you always have enough fo od for your family? (Household - for ages 0-17 years) Not on file 07/10/2023 Comments No Sex and Gender Information Value Date Recorded Sex Assigned at Female 07/10/2023 10:24 AM EST Legal Sex Female 6:15 AM EST Gender Identity Female 07/10/2023 10:24 AM EST Sexual Orientation Straight 07/10/2023 10 :24 AM EST documented as of this encounter Last Filed Vital Signs Vital Sign Reading Time Taken Comments Blood Pressure 102/73 09/17/2024 3:21 PM EST Pulse 98 09/17/2024 3:21 PM EST Temperature 37 C (98.6 F) 09/17/2024 3:21 PM EST Respiratory Rate - - Oxygen Saturation 98% 09/17/2024 3:21 PM EST Inhaled Oxygen Concentration - - Weight 67.5 kg (148 lb 14.4 oz) 09/17/2024 3:21 PM EST Height - - Body Mass Index - - documented in this encounter Progress Notes * Naomi Sheth PA-C - 09/17/2024 3:28 PM EST Images from the original note were not included. History of Present Illness Citlali Norton is a 18 year old female that presents for Follow Up (Urgent care) Pt here today as a f/up after being seen at [facility] yesterday and was diagnosed with mono. Pt reports was also tested for flu and COVID that were negative. Pt really thought she would be positive for the flu. Feels maybe the test wasn't completed adequately. Having a fever of 101-103, sore throat. Reports her chest villeda when she goes outside in the cold air. Pt also requesting to have blood work done to check her LFTs, as reports her mother was hospitalized due to these being elevated while sick. Pt has been taking Tylenol and Mucinex for symptoms. Received Medrol dosepak from [facility] but hasn't started this yet. Review of Systems: See HPI for pertinent positives. All other review of systems is negative. Physical Exam Vitals: 09/17/24 1521 Temp: 98.6 F (37 C) Pulse: 98 SpO2: 98% BP: 102/73 Physical Exam Constitutional: General: She is not in acute distress. Appearance: She is not diaphoretic. HENT: Right Ear: Tympanic membrane, ear canal and external ear normal. Left Ear: Tympanic membrane, ear canal and external ear normal. Mouth/Throat: Mouth: Mucous membranes are moist. Pharynx: Oropharynx is clear. Posterior oropharyngeal erythema present. No oropharyngeal exudate. Tonsils: No tonsillar exudate. 2+ on the right. 2+ on the left. Cardiovascular: Rate and Rhythm: Normal rate and regular rhythm. Pulmonary: Effort: Pulmonary effort is normal. Breath sounds: Normal breath sounds. Abdominal: General: Bowel sounds are normal. Palpations: Abdomen is soft. Musculoskeletal: Cervical back: Normal range of motion and neck supple. Lymphadenopathy: Cervical: Cervical adenopathy present. Skin: General: Skin is warm and dry. Neurological: General: No focal deficit present. Mental Status: She is alert. Mental status is at baseline. I have reviewed the following results: Assessment and Plan Infectious mononucleosis without complication, infectious mononucleosis due to unspecified organism After some discussion with the pt, sounds like swab was performed correctly. No need to repeat today. Can check labs and CXR today to check her LFTs and r/o developing pneumonia. Will notify of results as available. Discussed with pt it is up to her if she wants to take the Medrol or not--may make symptoms more tolerable, but pt is aware the mono will need to run its course and resolve with time. - CBC WITH WBC DIFFERENTIAL; Future - COMPREHENSIVE METABOLIC PANEL; Future - XR CHEST 2 VIEWS Burning in the chest - XR CHEST 2 VIEWS Wrap-Up Follow Up: Return if symptoms worsen or fail to improve. Time: I spent a total of 30-39 minutes (exact time 32 mins) on the date of service in preparation, delivery, and documentation of the care provided to Citlali Norton excluding any time spent in the performance of separately billed services. documented in this encounter Nursing Notes * Kathryn Latham CCMA - 09/17/2024 3:16 PM EST Pt is here today for a follow up from [facility] pt was seen there yesterday and was told she had mono pt was tested for covid and flu and was negative but pt stated she wants tested again for flu she didn't like the way she was tested for covid and flu pt stated all her sickness started about 10 days ago and two days ago pt started having fevers pt stated no one is sick in her home documented in this encounter Miscellaneous Notes * Result Encounter Note - Naomi Sheth PA-C - 09/17/2024 4:16 PM EST Chest xray is normal. No sign of pneumonia. documented in this encounter Plan of Treatment Pending Results Name Type Priority Associated Diagnoses Date /Time CBC WITH WBC DIFFERENTIAL Lab Routine Infectious mononucleosis without complication, infectious mononucleosis due to unspecified organism 09/17/2024 3:53 PM EST COMPREHENSIVE METABOLIC PANEL Lab Routine Infectious mononucleosis without complication, infectious mononucleosis due to unspecified organism 09/17/2024 3:53 PM EST CBC Lab Routine Infectious mononucleosis without complication, infectious mononucleosis due to unspecified organism 09/17/2024 3:53 PM EST DIFFERENTIAL, AUTOMATED Lab Routine Infectious mononucleosis without complication, infectious mononucleosis due to unspecified organism 09/17/2024 3:53 PM EST Scheduled Orders Name Type Priority Associated Diagnoses Orde r Schedule CBC WITH WBC DIFFERENTIAL Lab Routine Infectious mononucleosis without complication, infectious mononucleosis due to unspecified organism Expected: 09/17/2024 (Approximate), Expires: 09/17/2025 COMPREHENSIVE METABOLIC PANEL Lab Routine Infectious mononucleosis without complication, infectious mononucleosis due to unspecified organism Expected: 09/17/2024 (Approximate), Expires: 09/17/2025 Health Maintenance Due Date Last Done Comments Depression Screening 04/01/2020 04/01/2019 Influenza Vaccine (FLU shot) (#1) 2024 07/24/2007, 07/24/2007, 07/02/2006, Additional history exists DTap/Tdap Vaccines (7 - Td or Tdap) 12/30/2024 12/30/2014, 01/11/2009, 02/26/2005, Additional history exists Gonorrhea / Chlamydia Screen 07/27/2025 07/27/2024, 07/22/2023 Yearly Wellness Visit 07/27/2025 07/27/2024 , 07/22/2023, 04/14/2021, Additional history exists Hepatitis B Vaccine Completed 08/24/2004, 01/05/2004, 2003 MENINGOCOCCAL (MENACTRA/MENVEO) Completed 04/20/2020, 04/20/2020, 12/30/2014, Additional history exists HPV (Gardasil) Vaccine Completed , 09/13/2023, 07/22/2023 COVID-19 Vaccine Discontinued HIV Screening Discontinued Hepatitis C Screening Discontinued Pneumococcal Vaccine: Pediatrics (0 to 5 Years) and At-Risk Patients (6 to 18 Years and 19+ Years) Aged Out No longer eligib le based on patient's age to complete this topic documented as of this encounter Medical Devices Not on filedocumented as of this encounter Procedures Procedure Name Priority Date/Time Associated Diagnosis Comments XR CHEST 2 VIEWS STAT 09/17/2024 3:53 PM EST Infectious mononucleosis without complication, infectious mononucleosis due to unspecified organism Burning in the chest documented in this encounter Results * XR CHEST 2 VIEWS (09/17/2024 3:53 PM EST) Anatomical Region Laterality Modality Chest Computed Radiogr aphy 09/17/2024 4:13 PM EST Impressions 09/17/2024 4:11 PM EST IMPRESSION No active disease. Narrative 09/17/2024 4:11 PM EST EXAM XR CHEST 2 VIEWS - 09/17/2024 3:53 pm HISTORY "cough, chest burning" TECHNIQUE Frontal and lateral views of the chest were obtained. COMPARISON XR CHEST 1 VIEW, ACC: [id number], dated 2020-12-25 00:23:45 FINDINGS The lungs are clear. There is no pleural effusion or pneumothorax. The cardiomediastinal silhouette is within normal limits. Procedure Note Javier Lynn MD - 09/17/2024 EXAM XR CHEST 2 VIEWS - 09/17/2024 3:53 pm HISTORY "cough, chest burning" TECHNIQUE Frontal and lateral views of the chest were obtained. COMPARISON XR CHEST 1 VIEW, ACC: [id number], dated 2020-12-25 00:23:45 FINDINGS The lungs are clear. There is no pleural effusion or pneumothorax. Thecardiomediastinal silhouette is within normal limits. IMPRESSION IMPRESSION No active disease. Naomi Sheth PA-C RADIOLOGY ([facility]) Final Result documented in this encounter Visit Diagnoses Diagnosis Infectious mononucleosis without complication, infectious mononucleosis due to unspecified organism- Primary Burning in the chest Other chest pain documented in this encounter Care Teams Forming Department Supervisor Relationship Specialty Start Date End Date Darlene Grover MD [address] [place] [id number] PCP - General Family Medicine 04/20/20 documented as of this encounter
--- OUTSIDE RECORDS SUMMARY | 2024-10-08 13:37 | External Medical Summary ---
Author Name Unknown Address Unknown Organization [id number]:[facility] [address] [facility] [address] Laboratory Report Ordering Provider Test Date Status LINDA BLACKMON 07/28/2024 08:20:27 Final Observation Date Value Abnormality Reference (Units ) Status Thyroperoxidase Ab [Units/volume] in Serum or Plasma by Immunoassay 07/28/2024 08:20:27 6.3 <34.0 (IU/mL) Final Thyroglobulin Ab 07/28/2024 08:20:27 15.9 <115.0 (IU/mL) Final Performing Location [facility] [address] [facility] [address]
--- OUTSIDE RECORDS SUMMARY | 2024-10-08 13:37 | External Medical Summary ---
Author Name Unknown Address Unknown Organization [id number]:[facility] [place] - [address] [address] Laboratory Report Ordering Provider Test Date Status LINDA BLACKMON 07/28/2024 08:20:27 Final Observation Date Value Abnormality Reference (Units ) Status Insulin level 07/28/2024 08:20:27 8 3-25 ( uU/mL) Final The above reference interval is based on fasting status. Performing Location [facility] - [address] [place] [address]
--- OUTSIDE RECORDS SUMMARY | 2024-10-08 13:37 | External Medical Summary ---
Author Name Unknown Address Unknown Organization [id number]:[facility] [place] - [facility] [address] [facility] [address] Laboratory Report Ordering Provider Test Date Status LINDA BLACKMON 07/27/2024 12:26:56 Final Gonorrhea / chlamydia screen ing Observation Date Value Abnormality Reference (Units ) Status Chlamydia trachomatis rRNA [Presence] in Specimen by SAURABH with probe detection 07/27/2024 12:26:56 Negative Negative Final No Chlamydia trachomatis det ected by armhole sewer-mediated nucleic acid amplification. Neisseria gonorrhoeae rRNA [ Presence] in Specimen by SAURABH with probe detection 07/27/2024 12:26:56 Negative Negative Final No Neisseria gonorrhoeae det ected by armhole sewer-mediated nucleic acid amplification. Performing Location [facility] [place] - [address] [facility] [address]
--- OUTSIDE RECORDS SUMMARY | 2024-10-08 13:37 | External Medical Summary | Summary of Care ---
Author Name Unknown Organization [facility] Address [address] [place] [address] Phone [phone] Care Team Providers Care Director Of Reservations Name Role Phone Darlene Grover MD Primary Care Provider [phone] Reason for Visit * Reason Onset Date Comments Medication Refill 07/01/2024 Encounter Details Date Type Department Care Team ([facility] st Contact Info) Description 07/01/[address] [address] Darlene Grover MD [address] [place] [id number] Anxiety Allergies Active Allergy Reactions Criticality Noted Date Comments Gluten Meal 01/16/2023 Vomiting, itchy throat documented as of this encounter (statuses as of 07/03/2024) Medications Norethin Shadi-Eth Estrad-FE 1-20 MG-MCG Oral Tablet (Loestrin Fe 08/24) Take 1 Tab by mouth daily. 90 Tab 3 1 Active Additional Information Patient not taking.Reported on 07/22/2023 Tretinoin 0.05 % External Cream (Retin-A)Indic ations:Encount er for medication refill APPLY TOPICALLY TO AFFECTED AREA AT BEDTIME 45 g 1 4 Active FLUoxetine HCl 10 MG Oral Capsule (PROzac)Indica tions:Anxiety Take 1 Capsule by mouth in the morning. 30 Capsule 11 4 Active FLUoxetine HCl 10 MG Oral Capsule (PROzac)Indica tions:Anxiety Take 1 Capsule by mouth in the morning. 30 Capsule 11 4 07/01/20 24 Discontin ued(Refil l) documented as of this encounter (statuses as of 07/03/2024) Active Problems Problem Noted Date Diagnosed Date Sprain and strain of other specified sites of hi p and thigh 12/17/2012 documented as of this encounter (statuses as of 07/03/2024) Resolved Problems Problem Noted Date Diagnosed Date Resolved Date Acute pain of right knee 04/16/2016 Knee pain 12/17/2012 04/16/2016 documented as of this encounter (statuses as of 07/03/2024) Immunizations Name Administration Dates Next Due DTaP HIB - Dipth/Tet/Acell Pert/HIB 02/26/2005 DTaP Dipth/Tet/Acell Pertussis (Infanrix), Peds 05/23/2004,03/22/2004,01/20/2004 DTaP-IPV (Kinrix), 4 to 6 yrs 01/11/2009 HPV Vaccine, 9-Valent 09/13/2023,07/22/2023 Haemophilius B (HIB), unspecified 05/23/2004,,01/20/2004 Hepatitis A Vaccine 01/11/2009,11/25/2007 Hepatitis A, Ped/Adol., 18 y ear and below, 2-Dose 01/11/2009,11/25/2007 Hepatitis B, 0-19 yrs 08/24/2004,01/05/2004,05/0 10/2003 IPV - Polio Virus Vaccine (Inact) 08/24/2004,,01/20/2004 [...] AM EST documented as of this encounter Miscellaneous Notes * Telephone Encounter - Leonora Carrion PA-C - 07/03/2024 8:02 AM EST Signed Prescriptions: Disp Refills FLUoxetine HCl 10 MG Oral Capsule (PROzac) 30 Cap*11 Sig: Take 1 Capsule by mouth in the morning. Authorizing Provider: LEONORA CARRION * Telephone Encounter - Darlene Grover MD - 07/01/2024 5:59 PM ESTPending Prescriptions: Disp Refills FLUoxetine HCl 10 MG Oral Capsule (PROzac) 30 Cap*11 Sig: Take 1 Capsule by mouth in the morning. * Telephone Encounter - Jeannie Velarde CMA - 07/01/2024 2:38 PM ESTPending Prescriptions: Disp Refills FLUoxetine HCl 10 MG Oral Capsule (PROzac) 30 Cap*11 Sig: Take 1 Capsule by mouth in the morning. * Telephone Encounter - Jeannie Velarde CMA - 07/01/2024 2:38 PM EST Did you pend patient's preferred pharmacy and medication before forwarding?yes Pharmacy: [id number] Pending Prescriptions: Disp Refills FLUoxetine HCl 10 MG Oral Capsule (PROzac)30 Cap*11 Sig: Take 1 Capsule by mouth in the morning. Last Visit: 07/22/2023 (in office), 06/16/2024 (telemedicine) Next Visit: 07/24/2024 If no future appointments scheduled, and last appointment is greater than a year ago, please schedule patient for a follow-up appointment Last date the medication was ordered: 06/16/24 Is this request for a controlled substance?No Urine Drug Screen:No results found for this or any previous visit. Patient Phone Numbers Labs: Lab Results Component Value Date/Time CREAT 0.9 07/22/2023 11:50 AM POTASSIUM 4.7 07/22/2023 11:50 AM TSH 0.59 07/22/2023 11:50 AM ALT 23 07/22/2023 11:50 AM documented in this encounter Plan of Treatment Upcoming Encounters Date Type Department Care Team (Late st Contact Info) Description 07/24/2024 10:00 [place] [address] Darlene Grover MD [address] [place] [id number] Health Maintenance Due Date Last Done Comments HIV Screening 11/22/2018 Depression Screening 04/01/2020 04/01/2019 Hepatitis C Screening 11/22/2021 HPV (Gardasil) Vaccine (3 - 3-dose series) 01/21/2024 09/13/2023, 07/22/2023 COVID-19 Vaccine ( season) 2024 Influenza Vaccine (FLU shot) (#1) 2024 07/24/2007, 07/24/2007, 07/02/2006, Additional history exists Gonorrhea / Chlamydia Screen 07/22/2024 07/22/2023 Yearly Wellness Visit 07/22/2024 07/22/2023 , 04/14/2021, 04/20/2020, Additional history exists DTap/Tdap Vaccines (7 - Td or Tdap) 12/30/2024 12/30/2014, 01/11/2009, 02/26/2005, Additional history exists Hepatitis B Vaccine Completed 08/24/2004, 01/05/2004, 2003 MENINGOCOCCAL (MENACTRA/MENVEO) Completed 04/20/2020, 04/20/2020, 12/30/2014, Additional history exists Pneumococcal Vaccine: Pediatrics (0 to 5 Years) and At-Risk Patients (6 to 64 Years) Aged Out No longer eligible based on patient's age to complete this topic documented as of this encounter Medical Devices Not on filedocumented as of this encounter Visit Diagnoses Diagnosis Anxiety Anxiety state, unspecified documented in this encounter Care Teams Director Of Reservations Relationship Specialty Start Date End Date Darlene Grover MD [address] [place] [address] PCP - General Family Medicine 04/20/20 documented as of this encounter
--- OUTSIDE RECORDS SUMMARY | 2024-10-08 13:37 | External Medical Summary | Summary of Care ---
Author Name Unknown Organization [facility] Address [address] [place] [address] Phone [phone] Care Team Providers Care University Relations Vice President Name Role Phone Darlene Grover MD Primary Care Provider [phone] Reason for Visit * Reason Comments Physical-Exam Encounter Details Date Type Department Care Team ([facility] st Contact Info) Description 07/27/2024 11:40 AM EST Office Visit [address] [address] Dalia Beckman CRNP [address] [place] [address] Well adult exam*; Special screening examination for chlamydial disease; Need for HPV vaccination; Menorrhagia with regular cycle Allergies Active Allergy Reactions Criticality Noted Date Comments Gluten Meal 01/16/2023 Vomiting, itchy throat documented as of this encounter (statuses as of 07/27/2024) Medications Norethin Shadi-Eth Estrad-FE 1-20 MG-MCG Oral Tablet (Loestrin Fe 120) Take 1 Tab by mouth daily. 90 Tab 3 1 Active Additional Information Patient not taking.Reported on 07/27/2024 Tretinoin 0.05 % External Cream (Retin-A)Indica tions:Encounter for medication refill APPLY TOPICALLY TO AFFECTED AREA AT BEDTIME 45 g 1 4 Active FLUoxetine HCl 10 MG Oral Capsule (PROzac)Indicat ions:Anxiety Take 1 Capsule by mouth in the morning. 30 Capsule 11 Active Additional Information Patient not taking.Reported on 07/27/2024 documented as of this encounter (statuses as of 07/27/2024) Active Problems Problem Noted Date Diagnosed Date Sprain and strain of other specified sites of hi p and thigh 12/17/2012 documented as of this encounter (statuses as of 07/27/2024) Resolved Problems Problem Noted Date Diagnosed Date Resolved Date Acute pain of right knee 04/16/2016 Knee pain 12/17/2012 04/16/2016 documented as of this encounter (statuses as of 07/27/2024) Immunizations Name Administration Dates Next Due DTaP HIB - Dipth/Tet/Acell Pert/HIB 02/26/2005 DTaP Dipth/Tet/Acell Pertussis (Infanrix), Peds 05/23/2004,03/22/2004,01/20/2004 DTaP-IPV (Kinrix), 4 to 6 yrs 01/11/2009 HPV Vaccine, 9-Valent 07/27/2024,09/13/2023,07/05 Haemophilius B (HIB), unspecified 05/23/2004,,01/20/2004 Hepatitis A Vaccine 01/11/2009,11/25/2007 Hepatitis A, Ped/Adol., 18 y ear and below, 2-Dose 01/11/2009,11/25/2007 Hepatitis B, 0-19 yrs 08/24/2004,01/05/2004,0510/2003 IPV - Polio Virus Vaccine (Inact) 08/24/2004,,01/20/2004 [...] Date Smoking Tobacco: Never Smokeless Tobacco: Never Tobacco Cessation:Counseling Given: Not Answered Alcohol Use Standard Drinks/Week Comments Never 0 [...] Sign Reading Time Taken Comments Blood Pressure 110/76 07/27/2024 11:49 AM EST Pulse 69 07/27/2024 11:49 AM EST Temperature 36.6 C (97.8 F) 07/27/2024 11:[address] Respiratory Rate 18 07/27/2024 11:49 AM EST Oxygen Saturation 99% 07/27/2024 11:49 AM EST Inhaled Oxygen Concentration - - Weight 68.1 kg (150 lb 3.2 oz) 07/27/2024 11:49 AM EST Height 167.6 cm (5' 6") 07/27/2024 11:49 AM EST Body Mass Index 24.24 07/27/2024 11:49 AM EST documented in this encounter Progress Notes * Dalia Beckman CRNP - 07/27/2024 11:59 AM EST Images from the original note were not included. History of Present Illness Citlali Norton is a 18 year old female that presents for Physical-Exam HPI: Citlali presents today for routine physical. Was prescribed prozac last month didn't end up taking it. Notes she does this, has anxiety about taking the meds. Anxiety comes in waves. Has about one bad week a month. Has been doing talk therapy since she was 14. Exercises routinely which helps. Admits to medical anxiety. Feels like something is off. Notes she gets lump in axilla during menses. Feels like body is dysregulated. Has significant pain with periods on the first two days. Will vomit from pain. Does not want to be on control. Notes she went off control about a year ago and feels better off of it. Physical Exam Vitals: 07/27/24 1149 Temp: 97.8 F (36.6 C) Pulse: 69 Resp: 18 SpO2: 99% BP: 110/76 BMI: 24.25 Physical Exam Vitals and nursing note reviewed. Constitutional: Appearance: She is well-developed. HENT: Head: Normocephalic and atraumatic. Right Ear: Tympanic membrane, ear canal and external ear normal. Left Ear: Tympanic membrane, ear canal and external ear normal. Eyes: Conjunctiva/sclera: Conjunctivae normal. Pupils: Pupils are equal, round, and reactive to light. Neck: Thyroid: No thyromegaly. Cardiovascular: Rate and Rhythm: Normal rate and regular rhythm. Heart sounds: Normal heart sounds. No murmur heard. No friction rub. No gallop. Pulmonary: Effort: Pulmonary effort is normal. Breath sounds: Normal breath sounds. No wheezing or rales. Abdominal: General: Bowel sounds are normal. There is no distension. Palpations: Abdomen is soft. There is no mass. Tenderness: There is no abdominal tenderness. There is no guarding or rebound. Musculoskeletal: General: Normal range of motion. Cervical back: Normal range of motion and neck supple. Lymphadenopathy: Cervical: No cervical adenopathy. Skin: General: Skin is warm and dry. Neurological: Mental Status: She is alert and oriented to person, place, and time. Psychiatric: Behavior: Behavior normal. Thought Content: Thought content normal. Judgment: Judgment normal. Assessment and Plan Well adult exam Reviewed appropriate screenings and immunizations. Diet and exercise. Special screening examination for chlamydial disease - CHLAMYDIA TRACHOMATIS AND NEISSERIA GONORRHOEAE, AMPLIFIED PROBE; Future - CHLAMYDIA TRACHOMATIS AND NEISSERIA GONORRHOEAE, AMPLIFIED PROBE Need for HPV vaccination - HPV VACCINE, 9-VALENT, IM Menorrhagia with regular cycle Will check labs. Consider metformin. - THYROID ANTIBODY AND TPO ANTIBODY; Future - TSH WITH FREE T4 IF INDICATED; Future - CORTISOL; Future - TESTOSTERONE: TOTAL, FREE AND BIOAVAILABLE; Future - PROLACTIN; Future - FSH; Future - INSULIN; Future Wrap-Up Follow Up: Return if symptoms worsen or fail to improve. documented in this encounter Nursing Notes * Darshana Can LPN - 07/27/2024 12:19 PM EST Pre-Administration Time Out Procedure Performed: Yes Patient Identified (Ask Name/Date of ): Yes Does the patient have a fever greater than 101 degrees today? No Patient allergic to latex? No Has the patient ever fainted after receiving an injection? No VFC Stock: No Immunization(s) verified: Yes, Immunization Name: Gardasil, VIS Sheet(s) given: No Verified Side and Site: Yes Verified Shot(s) with Parent(s)/Patient: Yes * Darshana Can LPN - 07/27/2024 11:50 AM EST Pt is here for CPE. Pt will discuss medications with provider. Patient has been verbally educated on the need or importance of Hepatitis C, HIV, COVID, and Flu Vaccine and has declined topic(s). documented in this encounter Plan of Treatment Upcoming Encounters Date Type Department Care Team (Late st Contact Info) Description 07/28/2024 7:50 AM EST Laboratory Laboratory, [address] [address] [address] Pending Results Name Type Priority Associated Diagnoses Date /Time CHLAMYDIA TRACHOMATIS AND NEISSERIA GONORRHOEAE, AMPLIFIED PROBE Lab Routine Special screening examination for chlamydial disease 07/27/2024 12:26 PM EST Scheduled Orders Name Type Priority Associated Diagnoses Orde r Schedule CHLAMYDIA TRACHOMATIS AND NEISSERIA GONORRHOEAE, AMPLIFIED PROBE Lab Routine Special screening examination for chlamydial disease Expected: 07/27/2024 (Approximate), Expires: 08/27/2025 THYROID ANTIBODY AND TPO ANTIBODY Lab Routine Menorrhagia with regular cycle Expected: 07/27/2024 (Approximate), Expires: 07/27/2025 TSH WITH FREE T4 IF INDICATED Lab Routine Menorrhagia with regular cycle Expected: 07/27/2024 (Approximate), Expires: 07/27/2025 CORTISOL Lab Routine Menorrhagia with regular cycle Expected: 07/27/2024 (Approximate), Expires: 07/27/2025 TESTOSTERONE: TOTAL, FREE AND BIOAVAILABLE Lab Routine Menorrhagia with regular cycle Expected: 07/27/2024 (Approximate), Expires: 07/27/2025 PROLACTIN Lab Routine Menorrhagia with regular cycle Expected: 07/27/2024 (Approximate), Expires: 07/27/2025 FSH Lab Routine Menorrhagia with regular cycle Expected: 07/27/2024 (Approximate), Expires: 07/27/2025 INSULIN Lab Routine Menorrhagia with regular cycle Expected: 07/27/2024 (Approximate), Expires: 07/27/2025 Health Maintenance Due Date Last Done Comments Depression Screening 04/01/2020 04/01/2019 Influenza Vaccine (FLU shot) (#1) 2024 07/24/2007, 07/24/2007, 07/02/2006, Additional history exists Gonorrhea / Chlamydia Screen 07/22/2024 07/22/2023 DTap/Tdap Vaccines (7 - Td or Tdap) 12/30/2024 12/30/2014, 01/11/2009, 02/26/2005, Additional history exists Yearly Wellness Visit 07/27/2025 07/27/2024 , 07/22/2023, [...] as of this encounter Visit Diagnoses Diagnosis Well adult exam- Primary Routine general medical examination at a health care facility Special screening examination for chlamydial disease Special screening examination for unspecified chlamydial disease Need for HPV vaccination Need for prophylactic vaccination and inoculation against other viral diseases Menorrhagia with regular cycle Excessive or frequent menstruation documented in this encounter Care Teams University Relations Vice President Relationship Specialty Start Date End Date Darlene Grover MD [address] [place] [address] PCP - General Family Medicine 04/20/20 documented as of this encounter
--- OUTSIDE RECORDS SUMMARY | 2024-10-08 13:37 | External Medical Summary ---
Author Name Unknown Address Unknown Organization [id number]:LABORATORY [facility] [place] - [address] [place] [address] Laboratory Report Ordering Provider Test Date Status LINDA BLACKMON 07/28/2024 08:20:27 Final Observation Date Value Abnormality Reference (Units ) Status TSH 07/28/2024 08:20:27 0.99 0.27-4.20 (uIU/mL) Final Performing Location LABORATORY [facility] [place] - [address] [facility] [address]
--- OUTSIDE RECORDS SUMMARY | 2024-10-08 13:37 | External Medical Summary | Summary of Care ---
Author Name Unknown Organization [facility] Address [address] [place] [address] Phone [phone] Care Team Providers Care Liturgical Music Director Name Role Phone Darlene Grover MD Primary Care Provider [phone] Reason for Visit * Reason Onset Date Comments Follow Up 06/17/2024 Encounter Details Date Type Department Care Team ([facility] st Contact Info) Description 06/17/[address] [address] Leonora Carrion PA-C [address] [place] [address] Follow Up Allergies Active Allergy Reactions Criticality Noted Date Comments Gluten Meal 01/16/2023 Vomiting, itchy throat documented as of this encounter (statuses as of 06/23/2024) Medications Norethin Shadi-Eth Estrad-FE 1-20 MG-MCG Oral Tablet (Loestrin Fe 08/24) Take 1 Tab by mouth daily. 90 Tab 3 1 Active Additional Information Patient not taking.Reported on 07/22/2023 Tretinoin 0.05 % External Cream (Retin-A)Indica tions:Encounter for medication refill APPLY TOPICALLY TO AFFECTED AREA AT BEDTIME 45 g 1 4 Active FLUoxetine HCl 10 MG Oral Capsule (PROzac)Indicat ions:Anxiety Take 1 Capsule by mouth in the morning. 30 Capsule 11 4 Active documented as of this encounter (statuses as of 06/23/2024) Active Problems Problem Noted Date Diagnosed Date Sprain and strain of other specified sites of hi p and thigh 12/17/2012 documented as of this encounter (statuses as of 06/23/2024) Resolved Problems Problem Noted Date Diagnosed Date Resolved Date Acute pain of right knee 04/16/2016 Knee pain 12/17/2012 04/16/2016 documented as of this encounter (statuses as of 06/23/2024) Immunizations Name Administration Dates Next Due DTaP [...] encounter Miscellaneous Notes * Telephone Encounter - Andra Agarwal OSA - 06/17/2024 12:45 PM EST Pt had video visit with Leonora Carrion on 06/16/2024. Per check out notes, pt needs f/u appt in 6 weeks. Sent my g to pt. documented in this encounter Plan of Treatment Upcoming Encounters Date Type Department Care Team (Late st Contact Info) Description 07/24/2024 10:00 AM EST Office Visit [facility] [address] [place] [address] Darlene Grover MD [address] [place] [address] Health Maintenance Due Date Last Done Comments [...] Not on filedocumented as of this encounter Care Teams Liturgical Music Director Relationship Specialty Start Date End Date Darlene Grover MD [address] [place] [address] PCP - General Family Medicine 04/20/20 documented as of this encounter
--- OUTSIDE RECORDS SUMMARY | 2024-10-08 13:37 | External Medical Summary ---
Author Name Unknown Address Unknown Organization [id number]:LABORATORY [facility] [place] - [address] [place] [address] Laboratory Report Ordering Provider Test Date Status ELLIS VERA 09/17/2024 15:53:02 Final Observation Date Value Abnormality Reference (Units ) Status SYNC LEUKOCYTES IN BLOOD BY AUTOMATED COUNT 09/17/2024 15:53:02 4.32 4.00-10.80 (K/uL) Final Segs 09/17/2024 15:53:02 41.4 40.0-75.0 (%) Final Lymphs % 09/17/2024 15:53:02 38.4 18.0-42.0 (%) Final Monos 09/17/2024 15:53:02 18.8 Above high normal 1.0-11.0 (%) Final Eosinophils 09/17/2024 15:53:02 0.2 0.0-6.0 (%) Final Basos 09/17/2024 15:53:02 0.5 0.0-2.0 (%) Final Immature Granulocyte, Percent 09/17/2024 15:53:02 0.7 0.0-2.0 (%) Final Absolute Segs 09/17/2024 15:53:02 1.79 Below low normal 1.80-8.00 (K/uL) Final Lymphs, absolute 09/17/2024 15:53:02 1.66 1.20-5.40 (K/ul) Final Monos, Abs 09/17/2024 15:53:02 0.81 0.00-1.10 (K/uL) Final Eos, Abs 09/17/2024 15:53:02 0.01 0.00-0.70 (K/uL) Final Basos, Abs 09/17/2024 15:53:02 0.02 0.00-0.20 (K/uL) Final Immature Granulocytes, Number 09/17/2024 15:53:02 0.03 0.00-0.20 (K/uL) Final Performing Location LABORATORY [facility] [place] - [facility] [address] [facility] [address]
--- OUTSIDE RECORDS SUMMARY | 2024-10-08 13:37 | External Medical Summary ---
Author Name Unknown Address Unknown Organization [id number]:LABORATORY [facility] [place] - [address] [facility] [address] Laboratory Report Ordering Provider Test Date Status ELLIS VERA 09/17/2024 15:53:02 Final Observation Date Value Abnormality Reference (Units ) Status WBC, Total 09/17/2024 15:53:02 4.32 4.00-10.80 (K/uL) Final RBC 09/17/2024 15:53:02 4.75 3.85-5.15 (M/uL) Final Hemoglobin 09/17/2024 15:53:02 14.8 12.0-15.3 (g/dL) Final HCT 09/17/2024 15:53:02 44.2 36.0-45.2 (%) Final MCV 09/17/2024 15:53:02 93.1 81.5-97.5 (fL) Final MCH 09/17/2024 15:53:02 31.2 27.0-34.0 (pg) Final MCHC 09/17/2024 15:53:02 33.5 32.0-36.0 (g/dL) Final RDW 09/17/2024 15:53:02 12.1 11.5-15.5 (%) Final Platelets 09/17/2024 15:53:02 152 140-400 (K/uL) Final MPV 09/17/2024 15:53:02 10.8 6.6-11.1 (fL) Final Nucleated erythrocytes/100 leukocytes [Ratio] in Blood by Automated count 09/17/2024 15:53:02 0 <=0 (/100 WBCs) Final Performing Location LABORATORY [facility] [place] - [address] [facility] [address]
--- OUTSIDE RECORDS SUMMARY | 2024-10-08 13:37 | External Medical Summary | Summary of Care ---
Author Name Unknown Organization [facility] Address [address] [place] [address] Phone [phone] Care Team Providers Care Deli Worker Name Role Phone Darlene Grover MD Primary Care Provider [phone] Reason for Visit * Reason Comments Follow Up Urgent care Encounter Details Date Type Department Care Team (Latest Contact Info) Description 09/17/2024 3:20 PM EST Office Visit General Internal Medicine [facility] [address] [facility] [place] [address] Naomi Sheth PA-C [address] [facility] [place] [address] Infectious mononucleosis without complication, infectious mononucleosis due [...] as a f/up after being seen at [facility] yesterday and was diagnosed with mono. Pt [...] Mucinex for symptoms. Received Medrol dosepak from [facility] but hasn't started this yet. Review of [...] here today for a follow up from [facility] pt was seen there yesterday and was [...] obtained. COMPARISON XR CHEST 1 VIEW, ACC: [id number], dated 2020-12-25 00:23:45 FINDINGS The lungs are clear. There is no pleural effusion or pneumothorax. The cardiomediastinal silhouette is within normal limits. Procedure Note Javier Lynn MD - 09/17/2024 EXAM XR CHEST 2 VIEWS - 09/17/2024 3:53 pm HISTORY "cough, chest burning" TECHNIQUE Frontal and lateral views of the chest were obtained. COMPARISON XR CHEST 1 VIEW, ACC: [id number], dated 2020-12-25 00:23:45 FINDINGS The lungs are [...] pain documented in this encounter Care Teams Deli Worker Relationship Specialty Start Date End Date Darlene Grover MD [address] [place] [address] PCP - General Family Medicine 04/20/20 documented as of this encounter
--- OUTSIDE RECORDS SUMMARY | 2024-10-08 13:37 | External Medical Summary ---
Author Name Unknown Address Unknown Organization K01:LABORATORY [facility] [place] - [facility] [address] [address] Laboratory Report Ordering Provider Test Date Status LINDA BLACMKON 07/28/2024 08:20:27 Final Observation Date Value Abnormality Reference (Units ) Status Albumin 07/28/2024 08:20:27 4.3 3.8-5.0 (g/dL) Final Sex Hormone Binding Globulin 07/28/2024 08:20:27 68 17-176 (nmol/L) Final Testosterone [Mass/volume] in Serum or Plasma 07/28/2024 08:20:27 35.6 2.9-48.0 (ng/dL) Final Free Testosterone, calculated 07/28/2024 08:20:27 3.9 0.2-7.8 (pg/mL) Final Bioavailable Testosterone, calculated 07/28/2024 08:20:27 9.1 0.4-19.0 (ng/dL) Final Performing Location LABORATORY [facility] [place] - [address] [place] [address]
--- OUTSIDE RECORDS SUMMARY | 2024-10-08 13:37 | External Medical Summary | Summary of Care ---
Author Name Unknown Organization [facility] Address [address] [place] [address] Phone [phone] Care Team Providers Care Automation Manager Name Role Phone Darlene Grover MD Primary Care Provider [phone] Reason for Visit * Reason Comments Acute Encounter Details Date Type Department Care Team (Late st Contact Info) Description 06/16/2024 6:[address] [address] Leonora Carrion PA-C [address] [place] [address] Anxiety* Allergies Active Allergy Reactions Criticality Noted Date Comments Gluten Meal 01/16/2023 Vomiting, itchy throat documented as of this encounter (statuses as of 06/16/2024) Medications Norethin Shadi-Eth Estrad-FE 1-20 MG-MCG Oral [...] as of this encounter (statuses as of 06/16/2024) Active Problems Problem Noted Date Diagnosed Date Sprain and strain of other specified sites of hi p and thigh 12/17/2012 documented as of this encounter (statuses as of 06/16/2024) Resolved Problems Problem Noted Date Diagnosed Date Resolved Date Acute pain of right knee 04/16/2016 Knee pain 12/17/2012 04/16/2016 documented as of this encounter (statuses as of 06/16/2024) Immunizations Name Administration Dates Next Due DTaP [...] AM EST documented as of this encounter Progress Notes * Leonora Carrion PA-C - 06/16/2024 6:46 PM EST Images from the original note were not included. History of Present Illness Citlali Norton is a 18 year old female that presents for Acute Citlali was contacted for an acute concern Currently a pre med student at [employer] Suffers from high functioning anxiety, depression Has been in therapy for this Was prescribed sertraline last year but never ended up taking A lot of stress with school Has coping with exercise, breathing techniques Still talking with therapist Now agreeable to trying med Denies SI/HI Wants to avoid weight gaining med Physical Exam There were no vitals filed for this visit. BP Readings from Last 3 Encounters: 02/10/24 105/75 07/22/23 120/76 01/16/23 106/70 Wt Readings from Last 3 Encounters: 02/10/24 70.4 kg (155 lb 4.8 oz) 07/22/23 68.2 kg (150 lb 4.8 oz) (81%, Z= 0.86)* 01/16/23 70.4 kg (155 lb 3.2 oz) (85%, Z= 1.05)* * Growth percentiles are based on CDC (Girls, 2-20 Years) data. BMI Readings from Last 3 Encounters: 07/22/23 24.26 kg/m (74%, Z= 0.66)* 01/16/23 24.67 kg/m (78%, Z= 0.77)* 04/14/21 22.02 kg/m (61%, Z= 0.29)* * Growth percentiles are based on CDC (Girls, 2-20 Years) data. Ht Readings from Last 3 Encounters: 07/22/23 1.676 m (5' 6") (75%, Z= 0.67)* 01/16/23 1.689 m (5' 6.5") (81%, Z= 0.87)* 04/14/21 1.689 m (5' 6.5") (82%, Z= 0.91)* * Growth percentiles are based on [facility] (Girls, 2-20 Years) data. Physical Exam Constitutional: Appearance: Normal appearance. HENT: Head: Normocephalic and atraumatic. Eyes: Extraocular Movements: Extraocular movements intact. Pulmonary: Effort: No respiratory distress. Skin: Findings: No erythema or rash. Neurological: General: No focal deficit present. Mental Status: She is alert and oriented to person, place, and time. Cranial Nerves: No cranial nerve deficit. Psychiatric: Attention and Perception: Attention normal. Mood and Affect: Mood is anxious. Speech: Speech normal. Behavior: Behavior normal. Thought Content: Thought content does not include homicidal or suicidal ideation. Assessment and Plan Anxiety Patient advised to continue medication as prescribed, do not taper off without consultation. Advised to seek help immediately if any suicidal/homicidal thoughts by coming to the office or going to the hospital and asking for Crisis. - FLUoxetine HCl 10 MG Oral Capsule (PROzac); Take 1 Capsule by mouth in the morning. Wrap-Up Follow-up: Return in about 6 weeks (around 07/28/2024). | Check-out note: video Time: I spent a total of 20-29 minutes (exact time 29 mins) on the date of service in preparation, delivery, and documentation of the care provided to Citlali Norton excluding any time spent in the performance of separately billed services. Telemedicine: Patient location: HOME. I was in a hospital or clinic location. After connecting through televideo,patient was verified with two unique identifiers. Patient (or authorized legal sales representative printing) was then informed that this was a Telemedicine visit and being conducted confidentially over secure lines. Methods to assure confidentiality were taken. Patient acknowledged consent and understanding of pr ivacy and security of the Telemedicine visit. The patient agreed to participate. documented in this encounter Plan of Treatment Upcoming Encounters Date Type Department Care Team (Late st Contact Info) Description 07/24/2024 10:00 AM EST Office Visit [facility] [address] [place] [address] Darlene Grover MD [address] [place] [address] Health Maintenance Due Date Last Done Comments [...] as of this encounter Visit Diagnoses Diagnosis Anxiety- Primary Anxiety state, unspecified documented in this encounter Care Teams Automation Manager Relationship Specialty Start Date End Date Darlene Grover MD [address] [place] [address] PCP - General Family Medicine 04/20/20 documented as of this encounter
--- OUTSIDE RECORDS SUMMARY | 2024-10-08 13:37 | External Medical Summary | Summary of Care ---
Author Name Unknown Organization [facility] Address [address] [place] [address] Phone [phone] Care Team Providers Care Warp Hauler Name Role Phone Darlene Grover MD Primary Care Provider [phone] Reason for Visit * Reason Comments Outpatient Testing Encounter Details Date Type Department Care Team ([facility] st Contact Info) Description 07/28/2024 7:50 AM EST Laboratory Laboratory, [address] [id number] [address] Menorrhagia with regular cycle Allergies Active Allergy Reactions Criticality Noted Date Comments Gluten Meal 01/16/2023 Vomiting, itchy throat documented as of this encounter (statuses as of 07/28/2024) Medications Norethin Shadi-Eth Estrad-FE 1-20 MG-MCG Oral [...] the morning. 30 Capsule 11 4 Active Additional Information Patient not taking.Reported on 07/27/2024 documented as of this encounter (statuses as of 07/28/2024) Active Problems Problem Noted Date Diagnosed Date Sprain and strain of other specified sites of hi p and thigh 12/17/2012 documented as of this encounter (statuses as of 07/28/2024) Resolved Problems Problem Noted Date Diagnosed Date Resolved Date Acute pain of right knee 04/16/2016 Knee pain 12/17/2012 04/16/2016 documented as of this encounter (statuses as of 07/28/2024) Immunizations Name Administration Dates Next Due DTaP [...] AM EST documented as of this encounter Plan of Treatment Pending Results Name Type Priority Associated Diagnoses Date /Time THYROID ANTIBODY AND TPO ANTIBODY Lab Routine Menorrhagia with regular cycle 07/28/2024 8:20 AM EST TSH WITH FREE T4 IF INDICATED Lab Routine Menorrhagia with regular cycle 07/28/2024 8:20 AM EST CORTISOL Lab Routine Menorrhagia with regular cycle 07/28/2024 8:20 AM EST TESTOSTERONE: TOTAL, FREE AND BIOAVAILABLE Lab Routine Menorrhagia with regular cycle 07/28/2024 8:20 AM EST PROLACTIN Lab Routine Menorrhagia with regular cycle 07/28/2024 8:20 AM EST FSH Lab Routine Menorrhagia with regular cycle 07/28/2024 8:20 AM EST INSULIN Lab Routine Menorrhagia with regular cycle 07/28/2024 8:20 AM EST Health Maintenance Due Date Last Done Comments [...] Additional history exists HPV (Gardasil) Vaccine Completed 4, 09/13/2023, 07/22/2023 COVID-19 Vaccine Discontinued HIV Screening Discontinued Hepatitis C Screening Discontinued Pneumococcal Vaccine: Pediatrics (0 to 5 Years) and At-Risk Patients (6 to 64 Years) Aged Out No longer eligible based on patient's age to complete this topic documented as of this encounter Medical Devices Not on filedocumented as of this encounter Visit Diagnoses Diagnosis Menorrhagia with regular cycle Excessive or frequent menstruation documented in this encounter Care Teams Warp Hauler Relationship Specialty Start Date End Date Darlene Grover MD [address] [place] [address] PCP - General Family Medicine 04/20/20 documented as of this encounter
--- OUTSIDE RECORDS SUMMARY | 2024-10-08 13:37 | External Medical Summary ---
Author Name Unknown Address Unknown Organization [id number]:[facility] [place] - [address] [place] [id number] Laboratory Report Ordering Provider Test Date Status LINDA BLACKMON 07/28/2024 08:20:27 Final Observation Date Value Abnormality Reference (Units ) Status Prolactin [Mass/volume] in Serum or Plasma by 3rd IS 07/28/2024 08:20:27 19.3 4.8-30.0 (ng/mL) Final Prolactin level varies durin g menstrual cycle, with peak level at ovulatory phase. Performing Location [facility] [place] - [address] [place] [id number]
--- NOTE | 2024-10-08 15:48 | Discharge Summary ---
Discharge Summary Date of Service October 08, 2024 Principal Dx & Hospital Course #1 = Principal Diagnosis (1) Sinus tachycardia: (2) Acute hypokalemia: Plan 18yo woman with recent diagnosis of Mononucleosis 3 weeks ago presenting with sinus tachycardia, intermittent episodes of rigors/flushing/chest tightness which started this evening. #Inappropriate sinus tachycardia - no history of cardiac issues. She is active, baseline resting heart rate reported to be 60. Sinus tachycardia, no ectopy or other arrhythmia appreciated on review of telemetry. Troponin was undetectable. CTA chest negative for PE or other significant findings. Echo was normal. No evidence of acute infection: normal WBC count, UA, Respiratory biofire panel, CXR, CTA chest and abdominal CT unremarkable, remained afebrile. Suspect some degree of dehydration given recent illness as well as mild electrolyte abnormality - K=3.4, Mg is borderline low at 1.7. Cardiac complications can occur with Mononucleosis, although rare. Mclennan also can be ca use of dysautonomia. Treated with 3L IV crystalloid as well as replacement of mild hypokalemia and low normal magnesium, heart rate improved and symptoms significantly improved. Inappropriate sinus tachycardia persisted despite IV fluids. Today HR in 80s when sleeping, 90-110 when sitting up awake, goes up to 125-140 with mild activity like getting up to the bathroom. This is probably related to mononucleosis which can cause autonomic dysfunction. Hopefully this will improve and resolve over a few weeks. If not, and remains lightheaded and tachycardic with standing can evaluate for POTS which has also been known to follow viral infections. -counseled on slowly increasing activity tolerance, high fluid and salt intake -discussed option of beta-wicho to improve symptoms, however, could cause increased lightheadedness -gave rx for 25 mg metop succinate daily x 7 days may increase to 50 mg in 1 week if no lightheadedness -she will probably hold off on this for a week or two and follow up with her doctor She has history of recurrent strep pharyngitis reasonable to try empiric treatment with amoxicillin #Hypokalemia - repletion with PO potassium 60mEq and IV magnesium - repeat BMP at 13:00 today and potassium 4.0, mag 2.0 Admission HPI Per Admitting Provider Citlali Norton is a pleasant 18yo female with no significant medical history presenting with tachycardia. Patient was recently diagnosed with Mclennan three weeks ago. She reports having a fever for 8 days as well as fatigue. She was mostly able to complete her daily activities - eating and drinking fairly well and going to class (pre-med major). This week she returned to some light daily exercise such as walking on the tr [employer] and was overall feeling well. This evening around 22:30 she stood up from the couch and felt dizzy, lightheaded and flushed. She felt that her heart was racing. Since then she has been experiencing intermittent episodes of shaking chills, flushing and tachycardia with chest tightness, difficulty taking a deep breath. Also complaining of significant weakness. She denies fever, abdominal pain, nausea, vomiting, diarrhea or constipation. She did have some mild dysuria. She reports a decreased appetite and approximately 8# of weight loss over the last three weeks while sick with mono. She is very active - baseline resting heart rate of 60bpm. Exercises frequently and reports active heart rate is in the low 100's. In the ER patient afebrile, tachycardic - sinus on monitor and telemetry review ER Course: NSS x 1L Discharge Exam Last 24h vitals reviewed GEN: no acute distress, sitting in bed HEENT: pupils equal, sclerae anicteric, moist MM RESP: normal WOB, CTAB CV: reclining her HR was normal but jumped abruptly to 120s with sitting upright, then trended down again. reg no mrg ABD: soft/nt/nd +BT : no david SKIN: warm and dry, no generalized rashes NEURO: AOx person, place, and situation. Face symmetric, speech normal, moves 4 ext spontaneously and equally Discharge Plan Discharge Items Patient Disposition: Home - Self-Care Reason For Visit: TACHYCARDIA Discharge Diagnosis: dehydration, sinus tachycardia, hypokalemia, mononucleosis Activity: Per Instructions section Non-emergency contact: Primary Care Provider Call non-emergency contact if: you have any medication questions and your symptoms worsen Follow-up/Referrals: JOSH LEONARD [Other] Diet: Regular Addtl Attending Provider Instructions: You were evaluated for lightheadedness and fast heart rate Fortunately this is a normal rhythm, just going inappropriately fast. Some component may be related to dehydration but it has persisted despite IV fluids. CTA of chest was negative for pulmonary embolism (blood clot in the lungs) or any other significant findings. Echo (heart ultrasound) was normal. Thyroid function is normal. I think this is related to the mononucleosis. Mclennan can cause dysfunction of the autonomic nervous system - which controls many body functions including heart rate, the urinary and GI systems, temperature regulation among other things. one option is to treat with a low dose of medication called beta wicho - typically metoprolol its reasonable to hold off on this for a few weeks and see if the problem is improving. its not good for your heart muscle to let it run too fast for weeks or months, however. you can try 25 mg daily and if you're not having lightheadedness you can increase to 50 mg daily. follow up with your doctor next week as planned Stay hydrated (3L a day fluids) and you will need to eat/drink extra salt - a "typical" salt diet is 3-4 grams a day. you may need twice that amount to prevent lightheadedness and high heart rate for awhile. Salty broth (bullion, ex), sports drinks, table salt and salt tablets are options. We didn't find any clear evidence of infection but its reasonable to try a week of antibiotic, since you've had problems with strep throat Your potassium stores were a little low - try to eat extra potassium-containing food for the next two weeks or so (banana has a lot). Keep taking your magnesium supplement. Pending Studies at Discharge: No Stand-Alone Forms: My [facility], Smoking Cessation Medications and DC Order Prescriptions: New amoxicillin 500 mg tablet 500 mg PO BID 10 Days Qty: 20 0RF metoprolol succinate 25 mg tablet extended release 24 hr 25 mg PO DAILY Qty: 30 0RF Rx Instructions: may increase to two tabs daily after a week if not lightheaded with standing Continued B12 1 mg PO DAILY magnesium citrate 135 mg PO DAILY multivitamin 1 cap PO DAILY zinc 1 cap PO DAILY Discharge Orders: Discharge Order (Routine); Ordered 10/08/24 Ordered By: Jessie Albarran Admission Data Admit Date/Time: 10/08/24 05:26 Attending Provider: Jessie Albarran Admit Provider: Leonora Colbert Primary Care Provider: JOSH LEONARD Other Providers: Leonora Colbert Hospital Stay Data Consultations 10/08/24 05:34 ED Decision to Admit Stat Diagnostic Imagining Performed 10/08/24 02:38 CT for pulmonary embolism PE [CT angio chest PE protocol] Stat 10/08/24 02:55 CT abdomen w IV con Stat Pending Results Patient Have Any Pending Studies at Discharge: No Discharge Instructions Given to Patient (Per Discharging Provider) You were evaluated for lightheadedness and fast heart rate Fortunately this is a normal rhythm, just going inappropriately fast. Some component may be related to dehydration but it has persisted despite IV fluids. CTA of chest was negative for pulmonary embolism (blood clot in the lungs) or any other significant findings. Echo (heart ultrasound) was normal. Thyroid function is normal. I think this is related to the mononucleosis. Mclennan can cause dysfunction of the autonomic nervous system - which controls many body functions including heart rate, the urinary and GI systems, temperature regulation among other things. one option is to treat with a low dose of medication called beta wicho - typically metoprolol its reasonable to hold off on this for a few weeks and see if the problem is improving. its not good for your heart muscle to let it run too fast for weeks or months, however. you can try 25 mg daily and if you're not having lightheadedness you can increase to 50 mg daily. follow up with your doctor next week as planned Stay hydrated (3L a day fluids) and you will need to eat/drink extra salt - a "typical" salt diet is 3-4 grams a day. you may need twice that amount to prevent lightheadedness and high heart rate for awhile. Salty broth (bullion, ex), sports drinks, table salt and salt tablets are options. We didn't find any clear evidence of infection but its reasonable to try a week of antibiotic, since you've had problems with strep throat Your potassium stores were a little low - try to eat extra potassium-containing food for the next two weeks or so (banana has a lot). Keep taking your magnesium supplement. Total Time Total Time Spent Total Time Spent (In Minutes): I personally spent: 55 minutes today on clinical care activities including: reviewing chart notes and vital signs reviewing labs reviewing studies examining and counseling the patient counseling the patient's family - her mother at bedside writing orders writing prescriptions, discharge instructions documentation Coding Level of Care Code 09948 INP/OBS DISCH >30 MIN Diagnoses Sinus tachycardia R00.0 Acute hypokalemia E87.6
== END 2024-10-08 15:59 | disposition home or self-care (01) ==
LOC: SUATTDRO → ED 00:36 → EDINP 00:36 → 2N 08:41